=== PATIENT | male | born 1950 | race Caucasian/White ===

== ENCOUNTER 2018-05-06 08:26 | Observation (INO) | payer MEDICARE, OTHER ==
[~2018-05-06] VITALS: Ht 167.6 cm; Wt 70.8 kg
[2018-05-06] MEDS ORDERED: ASPIRIN 325 MG TAB PO ONE (09:00)
[2018-05-06] MEDS ORDERED: ACET-2047 PO (09:11)
[2018-05-06] MEDS ORDERED: IRON100V IV (09:11)
[2018-05-06] MEDS ORDERED: CLON-379 PO (09:11)
[2018-05-06] MEDS ORDERED: NITR0.4T39 SL (09:11)
[2018-05-06] MEDS ORDERED: EPOE3000 SC (09:11)
[2018-05-06] MEDS ORDERED: LOPE-123 PO (09:11)
[2018-05-06] MEDS ORDERED: NPH,100V SQ ×2 (09:19)
[2018-05-06] MEDS ORDERED: AMLO5TAB4 PO (09:19)
[2018-05-06] MEDS ORDERED: GABA100C14 PO ×2 (09:19)
[2018-05-06] MEDS ORDERED: CALC300T5 PO (09:19)
[2018-05-06] MEDS ORDERED: SEVE800T7 PO (09:24)
[2018-05-06] MEDS ORDERED: SS SC (09:24)
[2018-05-06] MEDS ORDERED: NEPH PO (09:24)
[2018-05-06] MEDS ORDERED: CALC667T2 PO (09:24)
[2018-05-06] MEDS ORDERED: ACETAMINOPHEN 325 MG TAB PO PRN ×2 (10:00→12:00)
[2018-05-06] MEDS ORDERED: ONDANSETRON 4 MG INJ IV PRN ×2 (10:00→12:00)
--- NOTE | 2018-05-06 10:25 | ERD ---
ER Documentation Chief Complaint Chief Complaint NEW ONSET CONFUSION FROM DIALYSIS HPI Patient is a 67-year-old male with diabetes and end-stage renal disease on dialysis who presents altered. He was brought in by ambulance. He came from dialysis. He was confused after dialysis. The last known well time was 3 hours ago per the paramedics. He was weaker than normal per staff and was only awake alert and oriented x2. He does not know what year or month it is. He denies complaints. Upon review of old medical records this is the patient's first visit to the emergency department. ROS All systems reviewed and are negative except as per history of present illness. Medications Home Meds Reported Medications Sevelamer Carbonate* (Renvela*) 800 Mg Tablet, 2400 MG PO WITH MEALS, TAB 05/06/18 Multivit/Ca Carb/B Cmplx/Fa* (Abby-Lisa*) 1 Tab Tab, 1 TAB PO DAILY, TAB 05/06/18 Calcium Acetate* (Phoslo*) 667 Mg Tablet, 1334 MG PO WITH MEALS, TAB 05/06/18 Insulin Human Regular (Novolin-R U-100) 100 Unit/Ml Soln, 12 UNITS SC TID, EA 05/06/18 Insulin NPH Human Isophane (Humulin N) 100 Unit/1 Ml Vial, 8 UNIT SQ BID WITH MEALS for lunch and dinner, VIAL 05/06/18 Insulin NPH Human Isophane (Humulin N) 100 Unit/1 Ml Vial, 12 UNIT SQ am, VIAL 05/06/18 Gabapentin* (Gabapentin*) 100 Mg Capsule, 200 MG PO hs, #180 CAP 05/06/18 Gabapentin* (Gabapentin*) 100 Mg Capsule, 100 MG PO morning, #90 CAP 05/06/18 Amlodipine Besylate* (Norvasc*) 5 Mg Tablet, 5 MG PO DAILY, TAB 05/06/18 Calcium Carbonate (Tums) 300 Mg Tab.chew, 500 MG PO QID PRN for HEARTBURN, TAB.CHEW 05/06/18 Loperamide Hcl* (Loperamide Hcl*) 2 Mg Cap, 2 MG PO Q6H PRN for DIARRHEA, CAP 05/06/18 Nitroglycerin* (Nitrostat*) 0.4 Mg Tab.subl, 0.4 MG SL Q5MIN PRN for CHEST PAIN, BOTTLE 05/06/18 Clonidine Hcl* (Clonidine Hcl*) 0.1 Mg Tab, 0.1 MG PO TID PRN for for sbp>180, TAB 05/06/18 Acetaminophen* (Acetaminophen*) 650 Mg Tablet, 650 MG PO Q6H PRN for PAIN AND OR ELEVATED TEMP, #30 TAB 05/06/18 Iron Sucrose* (Venofer*) 100 Mg/5 Ml Vial, 50 MG IV weekly, VIAL 05/06/18 Epoetin abebe* (Epogen*) 3,000 Unit/1 Ml Vial, 3600 UNIT SC MONWEDFRI, VIAL 05/06/18 Allergies Allergies: Coded Allergies: No Known Allergy (Unverified , 05/06/18) PMhx/Soc History of Surgery: Yes (FISTULA ) Anesthesia Reaction: No Hx 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 Disorder: No Hx Respiratory Disorders: No Hx Cardiac Disorders: Yes (HTN, HIGH CHOLESTEROL) Hx Psychiatric Problems: No Hx Miscellaneous Medical Probl: Yes (DM, ESRD ON HD) Hx Alcohol Use: No Hx Substance Use: No Hx Tobacco Use: Yes Smoking Status: Current every day smoker FmHx Family History: diabetes Physical Exam Vitals Vital Signs Date Temp Pulse Resp B/P (MAP) Pulse Ox O2 O2 Flow FiO2 Time Delivery Rate 05/06/18 Nasal 2 08:30 Cannula 05/06/18 98.1 82 16 163/95 88 08:30 (117) Physical Exam Const: No acute distress Head: Atraumatic Eyes: Normal Conjunctiva ENT: Normal External Ears, Nose and Mouth. Neck: Full range of motion. No meningismus. Resp: Clear to auscultation bilaterally Cardio: Regular rate and rhythm, no murmurs Abd: Soft, non tender, non distended. Normal bowel sounds Skin: No petechiae or rashes Back: No midline or flank tenderness Ext: No cyanosis, or edema Neur: Awake and alert x2, patient unable to tell me the year or month, but able to tell his name and state, field service consultant strength equal bilaterally, no pronator drift, no slurred speech, no facial droop Psych: Normal Mood and Affect Result Diagram: 05/06/18 0843 05/06/18 0845 Results 24 hrs Laboratory Tests Test 05/06/18 08:43 05/06/18 08:44 05/06/18 08:45 White Blood Count 4.0 10^3/ul Red Blood Count 3.05 10^6/ul Hemoglobin 9.4 g/dl Hematocrit 28.3 % Mean Corpuscular Volume 92.8 fl Mean Corpuscular Hemoglobin 30.8 pg Mean Corpuscular Hemoglobin Concent 33.2 g/dl Red Cell Distribution Width 14.4 % Platelet Count 142 10^3/UL Mean Platelet Volume 8.5 fl Immature Granulocytes % 0.300 % Neutrophils % 76.3 % Lymphocytes % 15.6 % Monocytes % 6.0 % Eosinophils % 1.3 % Basophils % 0.5 % Nucleated Red Blood Cells % 0.0 /100WBC Immature Granulocytes # 0.010 10^3/ul Neutrophils # 3.0 10^3/ul Lymphocytes # 0.6 10^3/ul Monocytes # 0.2 10^3/ul Eosinophils # 0.1 10^3/ul Basophils # 0.0 10^3/ul Nucleated Red Blood Cells # 0.0 10^3/ul Prothrombin Time 12.5 Sec Prothrombin Time Ratio 1.0 INR International Normalized Ratio 0.92 Activated Partial Thromboplast Time 32.9 Sec Sodium Level 139 mmol/L Potassium Level 3.9 mmol/L Chloride Level 91 mmol/L Carbon Dioxide Level 33 mmol/L Anion Gap 15 Blood Urea Nitrogen 32 mg/dl Creatinine 4.86 mg/dl Est Glomerular Filtrat Rate mL/min 12 mL/min Glucose Level 103 mg/dl Bedside Glucose 101 mg/dL Hemoglobin A1c 6.2 % Calcium Level 9.2 mg/dl Creatine Kinase 153 IU/L Creatine Kinase Index 2.5 Creatinine Kinase MB (Mass) 3.77 ng/ml Troponin I 0.045 ng/ml Triglycerides Level 162 mg/dl Cholesterol Level 164 mg/dl LDL Cholesterol, Calculated 89 mg/dl HDL Cholesterol 43 mg/dl Cholesterol/HDL Ratio 3.8 RATIO Ethyl Alcohol Level < 10.0 mg/dl Current Medications Medications Dose Sig/[place] Start Time Status Last (Trade) Ordered Route PRN Stop Time Admin Dose Reason Admin Aspirin 325 mg ONCE ONCE 05/06/18 DC 05/06/18 (Aspirin) PO 09:00 05/06/18 08:45 09:01 Ondansetron 4 mg ER BRIDGE 05/06/18 HCl (Zofran PRN IV 10:00 05/07/18 Inj) NAUSEA/VOMITI 09:59 NG 650 mg ER BRIDGE 05/06/18 Acetaminophen PRN PO 10:00 05/07/18 (Tylenol .MILD PAIN 09:59 Tab) 1-3 OR TEMP Procedures/MDM EKG read by me: Rate/Rhythm: Regular rate and rhythm at a normal rate Intervals: Normal Impression: No evidence of ischemia or arrhythmia CT brain shows no bleed or mass per radiology. Patient is a 67-year-old male who presents with altered mental status from dialysis. He arrived at 8:24 AM. A code stroke was called 8:26 AM and tele- neurology was called at the same time. The patient went straight to CT from the mathematics instructor [facility]. At 8:36 AM the radiologist called me and told me that the CT head was negative for bleed. I spoke with Dr. Kenyon teleneurologist at 8:38 AM who said that the patient would not get TPA as the risk would outweigh the benefits. I spoke with Dr. Flood from the panel team for admission to a telemetry observation bed. 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 The patient was given aspirin empirically after he passed a swallow evaluation. NIH stroke scale was performed by nursing. I doubt intracranial hemorrhage or mass. I doubt stroke at this time but the patient will need MRI for confirmation. Critical Care: Time: 35 minutes excluding all billable procedures. Treatments/Evaluations: Close monitoring and treatment of unstable vital signs, cardiorespiratory, and neurologic status, while maintaining tight balance of fluid, respiratory, and cardiac interventions. Departure Diagnosis: Primary Impression: Altered mental status Altered mental status type: unspecified Qualified Codes: R41.82 - Altered mental status, unspecified Condition: QUIQUE Pritchett MD May 06, 2018 10:25
--- NOTE | 2018-05-06 11:41 | HP ---
Date/Time of Note Date/Time of Note DATE: 05/06/18 TIME: 11:41 Assessment/Plan VTE Prophylaxis Pharmacological prophylaxis: LMWH Lines/Catheters IV Catheter Type (from [facility]): [place] Assessment/Plan Hospital Course 67-year-old male with comorbidities including hypertension, diabetes mellitus type 2, ESRD on hemodialysis, dyslipidemia, and anemia. He had acute onset of confusion while he was getting hemodialysis. Therefore, the patient was brought to the emergency room. The patient is status post evaluation by a tele- neurologist who recommended no TPA. The patient is being admitted to inpatient setting for further treatment and evaluation. 1. Acute encephalopathy. -Etiology unclear. -Brain CT scan negative. -Will start the patient on aspirin and statins until stroke is ruled out. -Obtain brain MRI along with a neck CTA and a brain CTA. -Obtain neurology consult. -Speech therapy and physical therapy evaluation. Permissive hypertension until stroke was ruled out. 2. Hypertension. -Treat high blood pressure readings greater than 220 mmHg. -Permissive hypertension. 3. Diabetes mellitus. -Start the patient on sliding scale insulin along with pre-meal insulin and basal insulin. -Obtain hemoglobin A1c to evaluate the blood glucose control over the past few weeks. 4. End-stage renal disease on hemodialysis. -Obtain nephrology consult. 5. Dyslipidemia. -Continue statins. 6. Normocytic anemia. -Most probably anemia chronic disease. -Monitor H&H closely. 7. Nicotine use. -Start nicotine patch. Plan: The patient will be admitted to inpatient telemetry floor. The patient will be started on a carbohydrate controlled, renal diet. The patient will be started on DVT prophylaxis. The patient will remain a full code. Activities will be with assist. The rest of the patient's management will be based on the clinical course, inputs from consultants, and the results of diagnostic studies. Based on the patient's clinical presentation, he most probably requires at least 1 midnight's stay for further management and evaluation of his clinical presentation. The patient was seen in collaboration with Dr. Flood. Result Diagram: 05/06/18 0843 05/06/18 0845 Results 24hrs Laboratory Tests Test 05/06/18 08:43 05/06/18 08:44 05/06/18 08:45 White Blood Count 4.0 L Red Blood Count 3.05 L Hemoglobin 9.4 L Hematocrit 28.3 L Mean Corpuscular Volume 92.8 Mean Corpuscular Hemoglobin 30.8 Mean Corpuscular Hemoglobin Concent 33.2 Red Cell Distribution Width 14.4 Platelet Count 142 Mean Platelet Volume 8.5 Immature Granulocytes % 0.300 Neutrophils % 76.3 Lymphocytes % 15.6 Monocytes % 6.0 Eosinophils % 1.3 Basophils % 0.5 Nucleated Red Blood Cells % 0.0 Immature Granulocytes # 0.010 Neutrophils # 3.0 Lymphocytes # 0.6 L Monocytes # 0.2 L Eosinophils # 0.1 Basophils # 0.0 Nucleated Red Blood Cells # 0.0 Prothrombin Time 12.5 Prothrombin Time Ratio 1.0 INR International Normalized Ratio 0.92 Activated Partial Thromboplast Time 32.9 Sodium Level 139 Potassium Level 3.9 Chloride Level 91 L Carbon Dioxide Level 33 H Anion Gap 15 H Blood Urea Nitrogen 32 H Creatinine 4.86 H Est Glomerular Filtrat Rate mL/min 12 L Glucose Level 103 Bedside Glucose 101 Hemoglobin A1c 6.2 H Calcium Level 9.2 Creatine Kinase 153 Creatine Kinase Index 2.5 Creatinine Kinase MB (Mass) 3.77 H Troponin I 0.045 Triglycerides Level 162 H Cholesterol Level 164 LDL Cholesterol, Calculated 89 HDL Cholesterol 43 Cholesterol/HDL Ratio 3.8 Ethyl Alcohol Level < 10.0 H HPI/ROS Admit Date/Time Admit Date/Time May 06, 2018 at 09:51 Hx of Present Illness This is a 67-year-old male with past medical history of hypertension, diabetes type 2, end-stage renal disease on hemodialysis, dyslipidemia, and anemia. The patient went to his hemodialysis clinic as scheduled on 05/06/2018. The patient apparently became confused. Therefore, the patient was transferred to [facility] for further evaluation and management. The patient denied any headache, chest pain, palpitations, or dyspnea. The patient does not remember what happened after he was initiated on hemodialysis. There was no reported falls. In the emergency room, the patient was evaluated by tele- neurologist who recommended no TPA. The patient's brain CT scan was negative for any acute findings. The patient's troponins were negative. The patient's chest x-ray was showing mild cardiomegaly with pulmonary vascular congestion and bibasilar linear atelectatic changes. ROS Constitutional: no complaints Eyes: no complaints ENT: no complaints Respiratory: no complaints Cardiovascular: no complaints Gastrointestinal: no complaints Genitourinary: no complaints Musculoskeletal: no complaints Skin: no complaints Neurologic: confusion Endocrine: no complaints Lymphatic: no complaints Psychological: no complaints Immunologic: no complaints PMH/Family/Social Past Medical History 1. Hypertension. 2. Diabetes mellitus type 2. 3. End-stage renal disease on hemodialysis. 4. Dyslipidemia. 5. Anemia. Medications Current Medications Ondansetron HCl (Zofran Inj) 4 mg ER BRIDGE PRN IV NAUSEA/VOMITING; Start 05/06/18 at 10:00; Stop 05/07/18 at 09:59 Acetaminophen (Tylenol Tab) 650 mg ER BRIDGE PRN PO .MILD PAIN 1-3 OR TEMP; Start 05/06/18 at 10:00; Stop 05/07/18 at 09:59 Coded Allergies: No Known Allergy (Unverified , 05/07/18) Past Surgical History Left upper extremity AV fistula placement. Social History Alcohol Use: none Smoking Status: Current every day smoker Drug Use: none Exam/Review of Systems Vital Signs Vitals Vital Signs Date Temp Pulse Resp B/P (MAP) Pulse Ox O2 O2 Flow FiO2 Time Delivery Rate 05/06/18 98.1 81 16 179/74 99 Nasal 2.0 11:06 (109) Cannula Exam Exam General: Adequately build 67 year-old male lying in bed in no apparent distress. HEENT: Normocephalic, atraumatic. Eyes: Anicteric sclerae, conjunctivae clear. ENT: Nasal septum midline, oral mucosa moist. Neck supple. Respiratory: Bilaterally clear breath sounds. No use of accessory muscles of respiration. No adventitious breath sounds. Cardiovascular: S1, S2 heard. Regular rate and rhythm. Abdomen: Soft, nontender, and nondistended. Bowel sounds positive in all 4 quadrants. Genitourinary: Deferred. Extremities: No cyanosis, no clubbing, no edema. Peripheral pulses palpable. Neurologic: The patient is awake and alert. Moves all 4 extremities. Oriented to self and place. Unable to tell me the date, month, or year. Able to tell who is the president. Skin: Normal skin turgor. No skin rashes. Additional Comments Brain CT IMPRESSION: 1. No acute intracranial pathology identified. 2. Mild volume loss, with mild chronic small vessel ischemic changes. CXR IMPRESSION: Mild cardiomegaly with pulmonary vascular congestion. Bibasilar linear atelectatic changes. ROLAND ZIMMERMAN NP May 06, 2018 11:41
[2018-05-06] MEDS ORDERED: NACL 0.9% 3 ML SYG IV SCH (12:00)
[2018-05-06 12:08] VITALS: PULSE 84
--- NOTE | 2018-05-06 12:26 | CONS ---
Assessment/Plan Assessment/Plan Assessment/Plan (Daily) 1. accelerated HTN 2. ESRD on HD -MWF schedule at [facility] HD unit 3. acute encephalopathy 4. H/o HTN 5. H/o HL 6. TIA vs rule out stroke Plan: seen in ED< getting admitted to tele, Pt is confused, has difficulty recalling his memory Plan for HD tomorrow BP control, with currently permissive HTN until stroke is ruled out MRI brain to assess for acute stroke Thanks for consultation, I will continue to follow up Consultation Date/Type/Reason Admit Date/Time May 06, 2018 at 09:51 Date of Consultation: May 06, 2018 Type of Consult NEPHROLOGY Reason for Consultation ESRD on HD, accelerated HTN Requesting Provider: ROLAND ZIMMERMAN NP Date/Time of Note DATE: 05/06/18 TIME: 12:25 Hx of Present Illness 67-year-old male with past medical history of hypertension, diabetes type 2, end-stage renal disease on hemodialysis, dyslipidemia, and anemia. Patient went to his hemodialysis clinic as scheduled on 05/06/2018. The patient apparently became confused. Therefore, the patient was transferred to [facility] for further evaluation and management. Patient status acute onset of confusion while he was getting hemodialysis. Therefore, the patient was brought to the emergency room. The patient is status post evaluation by a telemetry neurologist who recommended no TPA.- pt gets admitted for acute encephalopathy and to rule out acute stroke BP has been high, pt gets HD on , sunday schedule in [facility]. Renal has been consulted for maintainance HD and BP control Constitutional: disoriented, other (confusion ) Eyes: no complaints ENT: no complaints Respiratory: no complaints Cardiovascular: no complaints Gastrointestinal: no complaints Genitourinary: no complaints Musculoskeletal: no complaints Skin: no complaints Neurologic: no complaints Endocrine: no complaints Lymphatic: no complaints Psychological: no complaints Immunologic: no complaints Past Medical History Medical History: high cholesterol, hypertension, other (ESRD on HD ) Home Meds Reported Medications Sevelamer Carbonate* (Renvela*) 800 Mg Tablet, 2400 MG PO WITH MEALS, TAB 05/06/18 Multivit/Ca Carb/B Cmplx/Fa* (Abby-Lisa*) 1 Tab Tab, 1 TAB PO DAILY, TAB 05/06/18 Calcium Acetate* (Phoslo*) 667 Mg Tablet, 1334 MG PO WITH MEALS, TAB 05/06/18 Insulin Human Regular (Novolin-R U-100) 100 Unit/Ml Soln, 12 UNITS SC TID, EA 05/06/18 Insulin NPH Human Isophane (Humulin N) 100 Unit/1 Ml Vial, 8 UNIT SQ BID WITH MEALS for lunch and dinner, VIAL 05/06/18 Insulin NPH Human Isophane (Humulin N) 100 Unit/1 Ml Vial, 12 UNIT SQ am, VIAL 05/06/18 Gabapentin* (Gabapentin*) 100 Mg Capsule, 200 MG PO hs, #180 CAP 05/06/18 Gabapentin* (Gabapentin*) 100 Mg Capsule, 100 MG PO morning, #90 CAP 05/06/18 Amlodipine Besylate* (Norvasc*) 5 Mg Tablet, 5 MG PO DAILY, TAB 05/06/18 Calcium Carbonate (Tums) 300 Mg Tab.chew, 500 MG PO QID PRN for HEARTBURN, TA B.CHEW 05/06/18 Loperamide Hcl* (Loperamide Hcl*) 2 Mg Cap, 2 MG PO Q6H PRN for DIARRHEA, CAP 05/06/18 Nitroglycerin* (Nitrostat*) 0.4 Mg Tab.subl, 0.4 MG SL Q5MIN PRN for CHEST PAIN, BOTTLE 05/06/18 Clonidine Hcl* (Clonidine Hcl*) 0.1 Mg Tab, 0.1 MG PO TID PRN for for sbp>180, TAB 05/06/18 Acetaminophen* (Acetaminophen*) 650 Mg Tablet, 650 MG PO Q6H PRN for PAIN AND OR ELEVATED TEMP, #30 TAB 05/06/18 Iron Sucrose* (Venofer*) 100 Mg/5 Ml Vial, 50 MG IV weekly, VIAL 05/06/18 Epoetin abebe* (Epogen*) 3,000 Unit/1 Ml Vial, 3600 UNIT SC MONWEDFRI, VIAL 05/06/18 Medications Current Medications IV Flush (NS 3 ml) 3 ml PER PROTOCOL IV ; Start 05/06/18 at 12:00; Status UNV Ondansetron HCl (Zofran Inj) 4 mg Q6H PRN IV NAUSEA/VOMITING; Start 05/06/18 at 12:00; Status UNV Aspirin (Aspirin) 81 mg DAILY PO ; Start 05/07/18 at 09:00 Acetaminophen (Tylenol Tab) 650 mg Q6H PRN PO .PAIN 1-3 OR TEMP; Start 05/06/18 at 12:00 Heparin Sodium (Porcine) (Heparin (5000 Units/1ml)) 5,000 unit Q8 SC ; Start 05/06/18 at 14:00 Calcium Acetate (Phoslo) 1,334 mg WITH MEALS PO ; Start 05/06/18 at 17:55 Calcium Carbonate (Tums Ex) 500 mg QID PRN PO HEARTBURN; Start 05/06/18 at 12:30 Gabapentin (Neurontin) 200 mg hs PO ; Start 05/06/18 at 21:00 Multivit/Ca Carb/ B Cmplx/FA/Prenat (Abby-Lisa) 1 tab DAILY PO ; Start 05/07/18 at 09:00; Status UNV Sevelamer Carbonate (Renvela) 2.4 gm WITH MEALS PO ; Start 05/06/18 at 17:55; Status UNV Miscellaneous Information (* Miscellaneous Pharmacy Order) Discontinue current oral sulfonylur... ONCE ONCE XX ; Start 05/06/18 at 12:30; Stop 05/06/18 at 12:31 Insulin Glargine (Lantus) 11 units DAILY@2000 SC ; Start 05/06/18 at 20:00 Insulin Aspart (Novolog Insulin Pen) 4 unit WITH MEALS SC ; Start 05/06/18 at 17:55 Miscellaneous Information (* Miscellaneous Pharmacy Order) HYPOGLYCEMIA PROTOCOL w... ONCE ONCE XX ; Start 05/06/18 at 12:30; Stop 05/06/18 at 12:31 Insulin Aspart (Novolog Insulin Pen) NOVOLOG *MILD* ALGORITHM WITH MEALS BEDTIME SC ; Start 05/06/18 at 17:55 Hydralazine HCl (Apresoline) 10 mg Q6H PRN IV SBP>220; Start 05/06/18 at 12:30 Miscellaneous Information 1 ea NOTE XX ; Start 05/06/18 at 12:30 Glucose (Glutose) 15 gm Q15M PRN PO DECREASED GLUCOSE; Start 05/06/18 at 12:30 Glucose (Glutose) 22.5 gm Q15M PRN PO DECREASED GLUCOSE; Start 05/06/18 at 12:30 Dextrose (D50w Syringe) 25 ml Q15M PRN IV DECREASED GLUCOSE; Start 05/06/18 at 12:30 Dextrose (D50w Syringe) 50 ml Q15M PRN IV DECREASED GLUCOSE; Start 05/06/18 at 12:30 Glucagon (Glucagen) 1 mg Q15M PRN IM DECREASED GLUCOSE; Start 05/06/18 at 12:30 Glucose (Glutose) 15 gm Q15M PRN BUCCAL DECREASED GLUCOSE; Start 05/06/18 at 12:30 Allergies: Coded Allergies: No Known Allergy (Unverified , 05/06/18) Past Surgical History Past Surgical Hx: other (LUE AVF ) Family History Significant Family History: no pertinent family hx Social History Alcohol Use: none Smoking Status: Current every day smoker Drug Use: none Exam/Review of Systems Exam Vitals Vital Signs Date Temp Pulse Resp B/P (MAP) Pulse Ox O2 O2 Flow FiO2 Time Delivery Rate 05/06/18 84 12:08 05/06/18 98.1 16 179/74 99 Nasal 2.0 11:06 (109) Cannula Constitutional: alert Psych: no complaints Head: normocephalic Eyes: nl conjunctiva ENMT: nl external ears & nose Neck: supple, non-tender Respiratory: clear to auscultation, normal air movement Cardiovascular: regular rate and rhythm, nl pulses Gastrointestinal: soft, non-tender Musculoskeletal: swelling Extremities: normal pulses 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: [employer] 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 II-XII intact, nl strength, confused, reflexes (normal ) Skin: nl turgor Lymph: nl lymph nodes Results Result Diagram: 05/06/18 0843 05/06/18 0845 Results 24hrs Laboratory Tests Test 05/06/18 08:43 05/06/18 08:44 05/06/18 08:45 05/06/18 11:49 White Blood Count 4.0 L Red Blood Count 3.05 L Hemoglobin 9.4 L Hematocrit 28.3 L Mean Corpuscular Volume 92.8 Mean Corpuscular 30.8 Hemoglobin Mean Corpuscular 33.2 Hemoglobin Concent Red Cell Distribution 14.4 Width Platelet Count 142 Mean Platelet Volume 8.5 Immature Granulocytes % 0.300 Neutrophils % 76.3 Lymphocytes % 15.6 Monocytes % 6.0 Eosinophils % 1.3 Basophils % 0.5 Nucleated Red Blood 0.0 Cells % Immature Granulocytes # 0.010 Neutrophils # 3.0 Lymphocytes # 0.6 L Monocytes # 0.2 L Eosinophils # 0.1 Basophils # 0.0 Nucleated Red Blood 0.0 Cells # Prothrombin Time 12.5 Prothrombin Time Ratio 1.0 INR International 0.92 Normalized Ratio Activated 32.9 Partial Thromboplast Time Sodium Level 139 Potassium Level 3.9 Chloride Level 91 L Carbon Dioxide Level 33 H Anion Gap 15 H Blood Urea Nitrogen 32 H Creatinine 4.86 H Est Glomerular Filtrat 12 L Rate mL/min Glucose Level 103 Bedside Glucose 101 92 Hemoglobin A1c 6.2 H Calcium Level 9.2 Creatine Kinase 153 Creatine Kinase Index 2.5 Creatinine Kinase MB 3.77 H (Mass) Troponin I 0.045 Triglycerides Level 162 H Cholesterol Level 164 LDL Cholesterol, 89 Calculated HDL Cholesterol 43 Cholesterol/HDL Ratio 3.8 Ethyl Alcohol Level < 10.0 H Medications Medication Current Medications IV Flush (NS 3 ml) 3 ml PER PROTOCOL IV ; Start 05/06/18 at 12:00; Status UNV Ondansetron HCl (Zofran Inj) 4 mg Q6H PRN IV NAUSEA/VOMITING; Start 05/06/18 at 12:00; Status UNV Aspirin (Aspirin) 81 mg DAILY PO ; Start 05/07/18 at 09:00 Acetaminophen (Tylenol Tab) 650 mg Q6H PRN PO .PAIN 1-3 OR TEMP; Start 05/06/18 at 12:00 Heparin Sodium (Porcine) (Heparin (5000 Units/1ml)) 5,000 unit Q8 SC ; Start 05/06/18 at 14:00 Calcium Acetate (Phoslo) 1,334 mg WITH MEALS PO ; Start 05/06/18 at 17:55 Calcium Carbonate (Tums Ex) 500 mg QID PRN PO HEARTBURN; Start 05/06/18 at 12:30 Gabapentin (Neurontin) 200 mg hs PO ; Start 05/06/18 at 21:00 Multivit/Ca Carb/ B Cmplx/FA/Prenat (Abby-Lisa) 1 tab DAILY PO ; Start 05/07/18 at 09:00; Status UNV Sevelamer Carbonate (Renvela) 2.4 gm WITH MEALS PO ; Start 05/06/18 at 17:55; Status UNV Miscellaneous Information (* Miscellaneous Pharmacy Order) Discontinue current oral sulfonylur... ONCE ONCE XX ; Start 05/06/18 at 12:30; Stop 05/06/18 at 12:31 Insulin Glargine (Lantus) 11 units DAILY@2000 SC ; Start 05/06/18 at 20:00 Insulin Aspart (Novolog Insulin Pen) 4 unit WITH MEALS SC ; Start 05/06/18 at 17:55 Miscellaneous Information (* Miscellaneous Pharmacy Order) HYPOGLYCEMIA PROTOCOL w... ONCE ONCE XX ; Start 05/06/18 at 12:30; Stop 05/06/18 at 12:31 Insulin Aspart (Novolog Insulin Pen) NOVOLOG *MILD* ALGORITHM WITH MEALS BEDTIME SC ; Start 05/06/18 at 17:55 Hydralazine HCl (Apresoline) 10 mg Q6H PRN IV SBP>220; Start 05/06/18 at 12:30 Miscellaneous Information 1 ea NOTE XX ; Start 05/06/18 at 12:30 Glucose (Glutose) 15 gm Q15M PRN PO DECREASED GLUCOSE; Start 05/06/18 at 12:30 Glucose (Glutose) 22.5 gm Q15M PRN PO DECREASED GLUCOSE; Start 05/06/18 at 12:30 Dextrose (D50w Syringe) 25 ml Q15M PRN IV DECREASED GLUCOSE; Start 05/06/18 at 12:30 Dextrose (D50w Syringe) 50 ml Q15M PRN IV DECREASED GLUCOSE; Start 05/06/18 at 12:30 Glucagon (Glucagen) 1 mg Q15M PRN IM DECREASED GLUCOSE; Start 05/06/18 at 12:30 Glucose (Glutose) 15 gm Q15M PRN BUCCAL DECREASED GLUCOSE; Start 05/06/18 at 12:30 DINAH PEREZ MD May 06, 2018 12:26
[2018-05-06] MEDS ORDERED: DEXTROSE 50% 50 ML SYRINGE IV PRN ×2 (12:30)
[2018-05-06] MEDS ORDERED: SODIUM CHLORIDE 0.9% 1L BAG IV PRN (12:30)
[2018-05-06] MEDS ORDERED: ALBUMIN HUMAN 25% 100 ML IV PRN (12:30)
[2018-05-06] MEDS ORDERED: GLUCOSE GEL 15 GRAM TUBE BUCCAL PRN (12:30)
[2018-05-06] MEDS ORDERED: GLUCOSE GEL 15 GRAM TUBE PO PRN ×2 (12:30)
[2018-05-06] MEDS ORDERED: NIFEdipine (XL) 60 MG TAB PO ONE (12:30)
[2018-05-06] MEDS ORDERED: CALCIUM CARBONATE 750 MG CHEW TAB PO PRN (12:30)
[2018-05-06] MEDS ORDERED: GLUCAGON 1 MG INJ IM PRN (12:30)
[2018-05-06] MEDS ORDERED: hydrALAzine 20 MG INJ IV PRN ×2 (12:30)
[2018-05-06] MEDS ORDERED: SOD CHLORIDE 0.9% 100 ML ONE (14:37)
[2018-05-06] MEDS ORDERED: IODIXANOL LOCM 100 ML BTL ONE (14:37)
[2018-05-06] MEDS: HEPARIN 5,000 UNIT/1 ML VIAL SC SCH ×2 (15:09→21:13)
[2018-05-06 15:34] VITALS: BP_SYST 162; BP_SYST 163; BP_SYST 186; BP_DIAS 75; BP_DIAS 82; PULSE 82; PULSE 85; PULSE 86
[2018-05-06 15:59] VITALS: Ht 167.6 cm; Wt 70.8 kg
[2018-05-06] MEDS: NICOTINE (7 MG/24 HR) PATCH TRANSDERM SCH (16:00)
[2018-05-06 16:05] VITALS: PULSE 80
--- NOTE | 2018-05-06 16:15 | CONS ---
Assessment/Plan Assessment/Plan Hospital Course 67 M c/ ESRD and other comorbidities, who presents for evaluation of ams during HD.. The clinical picture could be consistent w/ an acute encephalopathy.. Presyncope is possible... Stroke is less likely.. Seizure is unlikely.. Head CT was without obvious acute intracranial pathology. P: OK to defer MRI brain for now [facility] [place] as necessary Limit sedating medications where possible PT/OT/ST as necessary Other management per primary Consider EEG if his mental status begins to noticeably fluctuate Will follow Consultation Date/Type/Reason Admit Date/Time May 06, 2018 at 09:51 Type of Consult Neurology Reason for Consultation ams Requesting Provider: ROLAND ZIMMERMAN NP Date/Time of Note DATE: 05/06/18 TIME: 16:15 Hx of Present Illness This is a 67-year-old male with past medical history of hypertension, diabetes type 2, end-stage renal disease on hemodialysis, dyslipidemia, and anemia. Patient went to his hemodialysis clinic as scheduled on 05/06/2018. The patient apparently became confused. Therefore, the patient was transferred to [facility] for further evaluation and management. Patient denied any headache, chest pain, palpitations, or dyspnea. The patient does not remember what happened after he was initiated on hemodialysis. There was no reported falls. In the emergency room, the patient was evaluated by telemetry neurologist who recommended no TPA. The patient's brain CT scan was negative for any acute findings. The patient's troponins were negative. The patient's chest x-ray was showing mild cardiomegaly with pulmonary vascular congestion and bibasilar linear atelectatic changes. 12 PT ROS ow neg Exam/Review of Systems Exam Vitals Vital Signs Date Temp Pulse Resp B/P (MAP) Pulse Ox O2 O2 Flow FiO2 Time Delivery Rate 05/06/18 80 16:05 05/06/18 98.6 92 16:00 05/06/18 186/82 15:34 (116) 163/75 (104) 162/75 (104) 05/06/18 16 Nasal 2.0 11:06 Cannula Exam PE: Gen Appearance: No Apparent Distress HEENT: Normocephalic Cardiovascular: Regular rate Abdomen: Soft Extremities: Dry NE: The patient was alert and oriented. Language was normal. Insight was limited. Fund of knowledge was adequate. Pupils were equal and reactive to light. There was no afferent pupillary defect. Visual quiñonez were normal. Funduscopic examination was limited.. Extra-ocular mo vements were full. Ptosis was absent. There was no nystagmus. Facial sensation was normal. Face was symmetric with normal strength. Hearing was intact. Palate movements were normal. Neck strength was normal. There was normal tongue bulk and speed of movement. Tone was normal. Muscle bulk was normal. I did not see fasciculations. Arms and legs were symmetric.. Vibration sensation was limited distally. Temperature and pinprick sensation was normal. Rapid alternating movements were normal. There was no dysmetria. There was no intention tremor. Gait was somewhat unsteady.. Arm and leg reflexes were symmetric. Tamayo's sign was absent. Plantar responses were flexor. Results Result Diagram: 05/06/18 0843 05/06/18 0845 Results 24hrs Laboratory Tests Test 05/06/18 08:43 05/06/18 08:44 05/06/18 08:45 05/06/18 11:49 White Blood Count 4.0 L Red Blood Count 3.05 L Hemoglobin 9.4 L Hematocrit 28.3 L Mean Corpuscular Volume 92.8 Mean Corpuscular 30.8 Hemoglobin Mean Corpuscular 33.2 Hemoglobin Concent Red Cell Distribution 14.4 Width Platelet Count 142 Mean Platelet Volume 8.5 Immature Granulocytes % 0.300 Neutrophils % 76.3 Lymphocytes % 15.6 Monocytes % 6.0 Eosinophils % 1.3 Basophils % 0.5 Nucleated Red Blood 0.0 Cells % Immature Granulocytes # 0.010 Neutrophils # 3.0 Lymphocytes # 0.6 L Monocytes # 0.2 L Eosinophils # 0.1 Basophils # 0.0 Nucleated Red Blood 0.0 Cells # Prothrombin Time 12.5 Prothrombin Time Ratio 1.0 INR International 0.92 Normalized Ratio Activated 32.9 Partial Thromboplast Time Sodium Level 139 Potassium Level 3.9 Chloride Level 91 L Carbon Dioxide Level 33 H Anion Gap 15 H Blood Urea Nitrogen 32 H Creatinine 4.86 H Est Glomerular Filtrat 12 L Rate mL/min Glucose Level 103 Bedside Glucose 101 92 Hemoglobin A1c 6.2 H Calcium Level 9.2 Creatine Kinase 153 Creatine Kinase Index 2.5 Creatinine Kinase MB 3.77 H (Mass) Troponin I 0.045 Triglycerides Level 162 H Cholesterol Level 164 LDL Cholesterol, 89 Calculated HDL Cholesterol 43 Cholesterol/HDL Ratio 3.8 Ethyl Alcohol Level < 10.0 H Medications Medication Current Medications IV Flush (NS 3 ml) 3 ml PER PROTOCOL IV ; Start 05/06/18 at 12:00 Ondansetron HCl (Zofran Inj) 4 mg Q6H PRN IV NAUSEA/VOMITING; Start 05/06/18 at 12:00 Aspirin (Aspirin) 81 mg DAILY PO ; Start 05/07/18 at 09:00 Acetaminophen (Tylenol Tab) 650 mg Q6H PRN PO .PAIN 1-3 OR TEMP; Start 05/06/18 at 12:00 Heparin Sodium (Porcine) (Heparin (5000 Units/1ml)) 5,000 unit Q8 SC Last administered on 05/06/18at 15:09; Admin Dose 5,000 UNIT; Start 05/06/18 at 14:00 Calcium Acetate (Phoslo) 1,334 mg WITH MEALS PO ; Start 05/06/18 at 17:55 Calcium Carbonate (Tums Ex) 500 mg QID PRN PO HEARTBURN; Start 05/06/18 at 12:30 Gabapentin (Neurontin) 200 mg hs PO ; Start 05/06/18 at 21:00 Multivit/Ca Carb/ B Cmplx/FA/Prenat (Abby-Lisa) 1 tab DAILY PO ; Start 05/07/18 at 09:00 Sevelamer Carbonate (Renvela) 2.4 gm WITH MEALS PO ; Start 05/06/18 at 17:55 Insulin Glargine (Lantus) 11 units DAILY@2000 SC ; Start 05/06/18 at 20:00 Insulin Aspart (Novolog Insulin Pen) 4 unit WITH MEALS SC ; Start 05/06/18 at 17:55 Insulin Aspart (Novolog Insulin Pen) NOVOLOG *MILD* ALGORITHM WITH MEALS BEDTIM E SC ; Start 05/06/18 at 17:55 Miscellaneous Information 1 ea NOTE XX ; Start 05/06/18 at 12:30 Glucose (Glutose) 15 gm Q15M PRN PO DECREASED GLUCOSE; Start 05/06/18 at 12:30 Glucose (Glutose) 22.5 gm Q15M PRN PO DECREASED GLUCOSE; Start 05/06/18 at 12:30 Dextrose (D50w Syringe) 25 ml Q15M PRN IV DECREASED GLUCOSE; Start 05/06/18 at 12:30 Dextrose (D50w Syringe) 50 ml Q15M PRN IV DECREASED GLUCOSE; Start 05/06/18 at 12:30 Glucagon (Glucagen) 1 mg Q15M PRN IM DECREASED GLUCOSE; Start 05/06/18 at 12:30 Glucose (Glutose) 15 gm Q15M PRN BUCCAL DECREASED GLUCOSE; Start 05/06/18 at 12:30 Nifedipine (Procardia Xl) 60 mg DAILY PO ; Start 05/07/18 at 09:00 Hydralazine HCl (Apresoline) 10 mg Q4H PRN IV SBP>160; Start 05/06/18 at 12:30 Albumin Human 100 ml @ 100 mls/hr WITH DIALYSIS PRN IV SBP <90 DURING DIALYSIS; Start 05/06/18 at 12:30 Sodium Chloride (NS) -To prime the dialy... DIRECTED FOR HD PRN IV HD; Start 05/06/18 at 12:30 Nicotine (Nicoderm 7 Mg/ 24 Hr) 1 patch DAILY TRANSDERM ; Start 05/06/18 at 16:00 Atorvastatin Calcium (Lipitor) 40 mg HS PO ; Start 05/06/18 at 21:00 Past Medical History reviewed Home Meds Reported Medications Sevelamer Carbonate* (Renvela*) 800 Mg Tablet, 2400 MG PO WITH MEALS, TAB 05/06/18 Multivit/Ca Carb/B Cmplx/Fa* (Abby-Lisa*) 1 Tab Tab, 1 TAB PO DAILY, TAB 05/06/18 Calcium Acetate* (Phoslo*) 667 Mg Tablet, 1334 MG PO WITH MEALS, TAB 05/06/18 Insulin Human Regular (Novolin-R U-100) 100 Unit/Ml Soln, 12 UNITS SC TID, EA 05/06/18 Insulin NPH Human Isophane (Humulin N) 100 Unit/1 Ml Vial, 8 UNIT SQ BID WITH MEALS for lunch and dinner, VIAL 05/06/18 Insulin NPH Human Isophane (Humulin N) 100 Unit/1 Ml Vial, 12 UNIT SQ am, VIAL 05/06/18 Gabapentin* (Gabapentin*) 100 Mg Capsule, 200 MG PO hs, #180 CAP 05/06/18 Gabapentin* (Gabapentin*) 100 Mg Capsule, 100 MG PO morning, #90 CAP 05/06/18 Amlodipine Besylate* (Norvasc*) 5 Mg Tablet, 5 MG PO DAILY, TAB 3/4/19 Calcium Carbonate (Tums) 300 Mg Tab.chew, 500 MG PO QID PRN for HEARTBURN, TAB.CHEW 05/06/18 Loperamide Hcl* (Loperamide Hcl*) 2 Mg Cap, 2 MG PO Q6H PRN for DIARRHEA, CAP 05/06/18 Nitroglycerin* (Nitrostat*) 0.4 Mg Tab.subl, 0.4 MG SL Q5MIN PRN for CHEST PAIN, BOTTLE 05/06/18 Clonidine Hcl* (Clonidine Hcl*) 0.1 Mg Tab, 0.1 MG PO TID PRN for for sbp>180, TAB 05/06/18 Acetaminophen* (Acetaminophen*) 650 Mg Tablet, 650 MG PO Q6H PRN for PAIN AND OR ELEVATED TEMP, #30 TAB 05/06/18 Iron Sucrose* (Venofer*) 100 Mg/5 Ml Vial, 50 MG IV weekly, VIAL 05/06/18 Epoetin abebe* (Epogen*) 3,000 Unit/1 Ml Vial, 3600 UNIT SC [facility], VIAL 05/06/18 Medications Current Medications IV Flush (NS 3 ml) 3 ml PER PROTOCOL IV ; Start 05/06/18 at 12:00 Ondansetron HCl (Zofran Inj) 4 mg Q6H PRN IV NAUSEA/VOMITING; Start 05/06/18 at 12:00 Aspirin (Aspirin) 81 mg DAILY PO ; Start 05/07/18 at 09:00 Acetaminophen (Tylenol Tab) 650 mg Q6H PRN PO .PAIN 1-3 OR TEMP; Start 05/06/18 at 12:00 Heparin Sodium (Porcine) (Heparin (5000 Units/1ml)) 5,000 unit Q8 SC Last administered on 05/06/18at 15:09; Admin Dose 5,000 UNIT; Start 05/06/18 at 14:00 Calcium Acetate (Phoslo) 1,334 mg WITH MEALS PO ; Start 05/06/18 at 17:55 Calcium Carbonate (Tums Ex) 500 mg QID PRN PO HEARTBURN; Start 05/06/18 at 12:30 Gabapentin (Neurontin) 200 mg hs PO ; Start 05/06/18 at 21:00 Multivit/Ca Carb/ B Cmplx/FA/Prenat (Abby-Lisa) 1 tab DAILY PO ; Start 05/07/18 at 09:00 Sevelamer Carbonate (Renvela) 2.4 gm WITH MEALS PO ; Start 05/06/18 at 17:55 Insulin Glargine (Lantus) 11 units DAILY@2000 SC ; Start 05/06/18 at 20:00 Insulin Aspart (Novolog Insulin Pen) 4 unit WITH MEALS SC ; Start 05/06/18 at 17:55 Insulin Aspart (Novolog Insulin Pen) NOVOLOG *MILD* ALGORITHM WITH MEALS BEDTIME SC ; Start 05/06/18 at 17:55 Miscellaneous Information 1 ea NOTE XX ; Start 05/06/18 at 12:30 Glucose (Glutose) 15 gm Q15M PRN PO DECREASED GLUCOSE; Start 05/06/18 at 12:30 Glucose (Glutose) 22.5 gm Q15M PRN PO DECREASED GLUCOSE; Start 05/06/18 at 12:30 Dextrose (D50w Syringe) 25 ml Q15M PRN IV DECREASED GLUCOSE; Start 05/06/18 at 12:30 Dextrose (D50w Syringe) 50 ml Q15M PRN IV DECREASED GLUCOSE; Start 05/06/18 at 12:30 Glucagon (Glucagen) 1 mg Q15M PRN IM DECREASED GLUCOSE; Start 05/06/18 at 12:30 Glucose (Glutose) 15 gm Q15M PRN BUCCAL DECREASED GLUCOSE; Start 05/06/18 at 12:30 Nifedipine (Procardia Xl) 60 mg DAILY PO ; Start 05/07/18 at 09:00 Hydralazine HCl (Apresoline) 10 mg Q4H PRN IV SBP>160; Start 05/06/18 at 12:30 Albumin Human 100 ml @ 100 mls/hr WITH DIALYSIS PRN IV SBP <90 DURING DIALYSIS; Start 05/06/18 at 12:30 Sodium Chloride (NS) -To prime the dialy... DIRECTED FOR HD PRN IV HD; Start 05/06/18 at 12:30 Nicotine (Nicoderm 7 Mg/ 24 Hr) 1 patch DAILY TRANSDERM ; Start 05/06/18 at 16:00 Atorvastatin Calcium (Lipitor) 40 mg HS PO ; Start 05/06/18 at 21:00 Allergies: Coded Allergies: No Known Allergy (Unverified , 05/06/18) Past Surgical History reviewed Social History Alcohol Use: none Smoking Status: Current some day smoker Drug Use: none BHUPINDER MENDEZ NP May 06, 2018 16:15 TONA FOSS May 06, 2018 16:37
[2018-05-06] MEDS: INSULIN ASPART [NOVOLOG] 3 ML PEN SC SCH ×3 (17:55→20:54)
[2018-05-06] MEDS: CALCIUM ACETATE 667 MG CAP PO SCH (18:15)
[2018-05-06] MEDS: SEVELAMER CARBONATE 0.8 GM PKT PO SCH (18:16)
[2018-05-06 20:00] VITALS: BP 145/64; PULSE 79; RESP 18
[2018-05-06 20:25] VITALS: PULSE 80
[2018-05-06] MEDS: ATORVASTATIN 40 MG TAB PO SCH (20:53)
[2018-05-06] MEDS: GABAPENTIN 100 MG CAP PO SCH (20:54)
[2018-05-06] MEDS: INSULIN GLARGINE [LANTus] (100 UNITS/ML) SYG SC SCH (20:57)
[2018-05-07] VITALS (13 sets, daily range): BP systolic 135–166; BP diastolic 63–76; PULSE 71–83; RESP 18–20
[2018-05-07] MEDS: HEPARIN 5,000 UNIT/1 ML VIAL SC SCH ×3 (05:10→21:12)
[2018-05-07] MEDS: INSULIN ASPART [NOVOLOG] 3 ML PEN SC SCH ×7 (07:55→21:00)
[2018-05-07] MEDS: SEVELAMER CARBONATE 0.8 GM PKT PO SCH ×3 (08:54→17:17)
[2018-05-07] MEDS: ASPIRIN 81 MG TAB PO SCH (08:55)
[2018-05-07] MEDS: MULTIVIT/CA CARB/B CMPLX/FA TAB PO SCH (08:55)
[2018-05-07] MEDS: CALCIUM ACETATE 667 MG CAP PO SCH ×3 (08:55→17:15)
[2018-05-07] MEDS: NICOTINE (7 MG/24 HR) PATCH TRANSDERM SCH (08:55)
[2018-05-07] MEDS: NIFEdipine (XL) 60 MG TAB PO SCH (09:00)
--- NOTE | 2018-05-07 14:39 | PN ---
Date/Time of Note Date/Time of Note DATE: 05/07/18 TIME: 14:32 Assessment/Plan VTE Prophylaxis Risk score (from Ns)>0 risk: 2 SCD applied (from [facility] [place]): No SCD contraindicated: other Pharmacological prophylaxis: heparin Lines/Catheters IV Catheter Type (from [facility]): Saline Lock Urinary Cath still in place: No Assessment/Plan Hospital Course SUBJECTIVE: Denies any complaints today. OBJECTIVE: Physical Exam General: Adequately build 67 year-old male lying in bed in no apparent distress. HEENT: Normocephalic, atraumatic. Eyes: Anicteric sclerae, conjunctivae clear. ENT: Nasal septum midline, oral mucosa moist. Neck supple. Respiratory: Bilaterally clear breath sounds. No use of accessory muscles of respiration. No adventitious breath sounds. Cardiovascular: S1, S2 heard. Regular rate and rhythm. Abdomen: Soft, nontender, and nondistended. Bowel sounds positive in all 4 quadrants. Genitourinary: Deferred. Extremities: No cyanosis, no clubbing, no edema. Peripheral pulses palpable. Neurologic: The patient is awake and alert. Moves all 4 extremities. The patient is oriented x4. Labs & Vitals per chart ASSESSMENT & PLAN 67-year-old male with comorbidities including hypertension, diabetes mellitus type 2, ESRD on hemodialysis, dyslipidemia, and anemia. He had acute onset of confusion while he was getting hemodialysis. Therefore, the patient was brought to the emergency room. The patient is status post evaluation by a tele- neurologist who recommended no TPA. The patient was admitted to inpatient [facility] for further treatment and evaluation. 1. Acute encephalopathy. -Etiology unclear. -Brain CT and MRI negative for any stroke. -Neurology following. -Continue PT. 2. Right cavernous internal carotid artery moderate to severe stenosis; left cavernous and proximal supraclinoid internal carotid artery mild stenoses; left V4 vertebral artery mild stenosis. -Neurosurgery consult obtained. 3. 40% focal stenosis just distal to the origin of the left subclavian artery secondary to eccentric calcific atherosclerotic plaque. -Continue ASA+statin. -Vascular Surgery consult obtained. 4. Hypertension. -Continue antihypertensives. 5. Diabetes mellitus. -Continue the patient on sliding scale insulin along with pre-meal insulin and basal insulin. -Hemoglobin A1c 6.2. 6. End-stage renal disease on hemodialysis. -Being followed by nephrology. 7. Dyslipidemia. -Continue statins. 8. Normocytic anemia. -Most probably anemia chronic disease. -Monitor H&H closely. 9. Nicotine use. -Continue nicotine patch. 10. Fluids, electrolytes, and nutrition. -Renal, carbohydrate controlled diet. 11. DVT prophylaxis. -SQ heparin. 12. Plan. -Continue current management. -Obtain neurosurgery and vascular surgery consult. -Plan of care was explained to the patient. The patient was seen in collaboration with Dr. Flood. Result Diagram: 05/07/18 0609 05/07/18 0609 Results 24hrs Laboratory Tests Test 05/06/18 16:04 05/06/18 18:05 05/06/18 20:53 05/07/18 06:09 Creatine Kinase 135 Creatine Kinase Index 2.3 Creatinine Kinase MB 3.06 H (Mass) Troponin I 0.040 0.053 Bedside Glucose 124 137 White Blood Count 4.1 L Red Blood Count 2.85 L Hemoglobin 8.7 L Hematocrit 26.6 L Mean Corpuscular Volume 93.3 Mean Corpuscular 30.5 Hemoglobin Mean Corpuscular 32.7 Hemoglobin Concent Red Cell Distribution 13.9 Width Platelet Count 143 Mean Platelet Volume 9.1 Immature Granulocytes % 0.200 Neutrophils % 66.8 Lymphocytes % 22.5 Monocytes % 9.3 Eosinophils % 1.0 Basophils % 0.2 Nucleated Red Blood 0.0 Cells % Immature Granulocytes # 0.010 Neutrophils # 2.7 Lymphocytes # 0.9 Monocytes # 0.4 Eosinophils # 0.0 Basophils # 0.0 Nucleated Red Blood 0.0 Cells # Sodium Level 138 Potassium Level 4.3 Chloride Level 93 L Carbon Dioxide Level 31 Anion Gap 14 H Blood Urea Nitrogen 50 H Creatinine 7.63 #H Est Glomerular Filtrat 7 L Rate mL/min Glucose Level 63 #L Calcium Level 8.9 Phosphorus Level 5.5 H Magnesium Level 2.5 Total Bilirubin 0.1 L Direct Bilirubin 0.00 Indirect Bilirubin 0.1 Aspartate Amino 17 Transf (AST/SGOT) Alanine 10 L Aminotransferase (ALT/SG PT) Alkaline Phosphatase 69 Total Protein 7.2 Albumin 3.8 Globulin 3.40 H Albumin/Globulin Ratio 1.11 Test 05/07/18 07:40 05/07/18 12:01 Bedside Glucose 76 124 Exam/Review of Systems Exam Vitals Vital Signs Date Temp Pulse Resp B/P (MAP) Pulse Ox O2 O2 Flow FiO2 Time Delivery Rate 05/07/18 80 12:06 05/07/18 98.4 18 147/67 93 11:13 (93) 05/06/18 Nasal 2.0 11:06 Cannula Intake and Output 05/06/18 05/06/18 05/07/18 1515:00 23:00 07:00 IntakeIntake Total 400 ml 500 ml BalanceBalance 400 ml 500 ml Results Results 24hrs Laboratory Tests Test 05/06/18 16:04 05/06/18 18:05 05/06/18 20:53 05/07/18 06:09 Creatine Kinase 135 Creatine Kinase Index 2.3 Creatinine Kinase MB 3.06 H (Mass) Troponin I 0.040 0.053 Bedside Glucose 124 137 White Blood Count 4.1 L Red Blood Count 2.85 L Hemoglobin 8.7 L Hematocrit 26.6 L Mean Corpuscular Volume 93.3 Mean Corpuscular 30.5 Hemoglobin Mean Corpuscular 32.7 Hemoglobin Concent Red Cell Distribution 13.9 Width Platelet Count 143 Mean Platelet Volume 9.1 Immature Granulocytes % 0.200 Neutrophils % 66.8 Lymphocytes % 22.5 Monocytes % 9.3 Eosinophils % 1.0 Basophils % 0.2 Nucleated Red Blood 0.0 Cells % Immature Granulocytes # 0.010 Neutrophils # 2.7 Lymphocytes # 0.9 Monocytes # 0.4 Eosinophils # 0.0 Basophils # 0.0 Nucleated Red Blood 0.0 Cells # Sodium Level 138 Potassium Level 4.3 Chloride Level 93 L Carbon Dioxide Level 31 Anion Gap 14 H Blood Urea Nitrogen 50 H Creatinine 7.63 #H Est Glomerular Filtrat 7 L Rate mL/min Glucose Level 63 #L Calcium Level 8.9 Phosphorus Level 5.5 H Magnesium Level 2.5 Total Bilirubin 0.1 L Direct Bilirubin 0.00 Indirect Bilirubin 0.1 Aspartate Amino 17 Transf (AST/SGOT) Alanine 10 L Aminotransferase (ALT/SG PT) Alkaline Phosphatase 69 Total Protein 7.2 Albumin 3.8 Globulin 3.40 H Albumin/Globulin Ratio 1.11 Test 05/07/18 07:40 05/07/18 12:01 Bedside Glucose 76 124 Medications Medication Current Medications IV Flush (NS 3 ml) 3 ml PER PROTOCOL IV ; Start 05/06/18 at 12:00 Ondansetron HCl (Zofran Inj) 4 mg Q6H PRN IV NAUSEA/VOMITING; Start 05/06/18 at 12:00 Aspirin (Aspirin) 81 mg DAILY PO Last administered on 05/07/18 08:55; Admin Dose 81 MG; Start 05/07/18 at 09:00 Acetaminophen (Tylenol Tab) 650 mg Q6H PRN PO .PAIN 1-3 OR TEMP; Start 05/06/18 at 12:00 Heparin Sodium (Porcine) (Heparin (5000 Units/1ml)) 5,000 unit Q8 SC Last administered on 05/07/18at 05:10; Admin Dose 5,000 UNIT; Start 05/06/18 at 14:00 Calcium Acetate (Phoslo) 1,334 mg WITH MEALS PO Last administered on 05/07/18 12:41; Admin Dose 1,334 MG; Start 05/06/18 at 17:55 Calcium Carbonate (Tums Ex) 500 mg QID PRN PO HEARTBURN; Start 05/06/18 at 12:30 Gabapentin (Neurontin) 200 mg hs PO Last administered on 05/06/18at 20:54; Admin Dose 200 MG; Start 05/06/18 at 21:00 Multivit/Ca Carb/ B Cmplx/FA/Prenat (Abby-Lisa) 1 tab DAILY PO Last administered on 05/07/18 08:55; Admin Dose 1 TAB; Start 05/07/18 at 09:00 Sevelamer Carbonate (Renvela) 2.4 gm WITH MEALS PO Last administered on 05/07/18 12:42; Admin Dose 2.4 GM; Start 05/06/18 at 17:55 Insulin Glargine (Lantus) 11 units DAILY@2000 SC Last administered on 05/06/18at 20:57; Admin Dose 11 UNITS; Start 05/06/18 at 20:00 Insulin Aspart (Novolog Insulin Pen) 4 unit WITH MEALS SC ; Start 05/06/18 at 17:55 Insulin Aspart (Novolog Insulin Pen) NOVOLOG *MILD* ALGORITHM WITH MEALS BEDTIME SC ; Start 05/06/18 at 17:55 Miscellaneous Information 1 ea NOTE XX ; Start 05/06/18 at 12:30 Glucose (Glutose) 15 gm Q15M PRN PO DECREASED GLUCOSE; Start 05/06/18 at 12:30 Glucose (Glutose) 22.5 gm Q15M PRN PO DECREASED GLUCOSE; Start 05/06/18 at 12:30 Dextrose (D50w Syringe) 25 ml Q15M PRN IV DECREASED GLUCOSE; Start 05/06/18 at 12:30 Dextrose (D50w Syringe) 50 ml Q15M PRN IV DECREASED GLUCOSE; Start 05/06/18 at 12:30 Glucagon (Glucagen) 1 mg Q15M PRN IM DECREASED GLUCOSE; Start 05/06/18 at 12:30 Glucose (Glutose) 15 gm Q15M PRN BUCCAL DECREASED GLUCOSE; Start 05/06/18 at 12:30 Nifedipine (Procardia Xl) 60 mg DAILY PO ; Start 05/07/18 at 09:00 Hydralazine HCl (Apresoline) 10 mg Q4H PRN IV SBP>160; Start 05/06/18 at 12:30 Albumin Human 100 ml @ 100 mls/hr WITH DIALYSIS PRN IV SBP <90 DURING DIALYSIS; Start 05/06/18 at 12:30 Sodium Chloride (NS) -To prime the dialy... DIRECTED FOR HD PRN IV HD; Start 05/06/18 at 12:30 Nicotine (Nicoderm 7 Mg/ 24 Hr) 1 patch DAILY TRANSDERM ; Start 05/06/18 at 16:00 Atorvastatin Calcium (Lipitor) 40 mg HS PO Last administered on 05/06/18at 20:53; Admin Dose 40 MG; Start 05/06/18 at 21:00 ROLAND ZIMMERMAN NP May 07, 2018 14:39
--- NOTE | 2018-05-07 14:57 | CONS ---
Assessment/Plan Assessment/Plan Hospital Course 67 M c/ ESRD and other comorbidities, who presents for evaluation of ams during HD.. The clinical picture could be consistent w/ an acute encephalopathy.. Presyncope is possible... Stroke is less likely.. Seizure is unlikely.. Head CT was without obvious acute intracranial pathology. [facility] positive Urine studies are deferred due to anuria... P: OK to defer MRI brain for now [place]oleen as necessary Limit sedating medications where possible PT/OT/ST as necessary Other management per primary Will follow clinically Consultation Date/Type/Reason Admit Date/Time May 06, 2018 at 09:51 Type of Consult Neurology Reason for Consultation ams Requesting Provider: ROLAND ZIMMERMAN NP Date/Time of Note DATE: 05/07/18 TIME: 14:57 24 HR Interval Summary Free Text/Dictation Continues acute care Exam Vital Signs Vitals Vital Signs Date Temp Pulse Resp B/P (MAP) Pulse Ox O2 O2 Flow FiO2 Time Delivery Rate 05/07/18 80 12:06 05/07/18 98.4 18 147/67 93 11:13 (93) 05/06/18 Nasal 2.0 11:06 Cannula Intake and Output 05/06/18 05/06/18 05/07/18 1515:00 23:00 07:00 IntakeIntake Total 400 ml 500 ml BalanceBalance 400 ml 500 ml Exam PE: Gen Appearance: No Apparent Distress HEENT: Normocephalic Cardiovascular: Regular rate Abdomen: Soft Extremities: Dry NE: The patient was alert and oriented. Language was normal. Insight was limited. Fund of knowledge was adequate. Pupils were equal and reactive to light. There was no afferent pupillary defect. Visual quiñonez were normal. Funduscopic examination was limited.. Extra-ocular movements were full. Ptosis was absent. There was no nystagmus. Facial sensation was normal. Face was symmetric with normal strength. Hearing was intact. Palate movements were normal. Neck strength was normal. There was normal tongue bulk and speed of movement. Tone was normal. Muscle bulk was normal. I did not see fasciculations. Arms and legs were symmetric.. Vibration sensation was limited distally. Temperature and pinprick sensation was normal. Rapid alternating movements were normal. There was no dysmetria. There was no intention tremor. Gait was somewhat unsteady.. Arm and leg reflexes were symmetric. Tamayo's sign was absent. Plantar responses were flexor. BHUPINDER MENDEZ NP May 07, 2018 14:57 TONA FOSS May 07, 2018 16:03
--- NOTE | 2018-05-07 18:31 | CONS ---
Assessment/Plan Assessment/Plan Assessment/Plan (Daily) 1. accelerated HTN 2. ESRD on HD -MWF schedule at [facility] HD unit 3. acute encephalopathy 4. H/o HTN 5. H/o HL 6. TIA vs rule out stroke Plan: MRI brain negative for jairon, BP now controlled, pt was ordered to have HD today but he refused to do it, He wants to have CT chest first- CT chest with Contrast has been ordered, still pending, afebrile, Bp stable will plan to do HD first in AM, meanwhile we will keep him on MWF schedule will follow up Consultation Date/Type/Reason Admit Date/Time May 06, 2018 at 09:51 Initial Consult Date 05/06/18 Type of Consult NEPHROLOGY Requesting Provider: ROLAND ZIMMERMAN NP Date/Time of Note DATE: 05/07/18 TIME: 18:30 24 HR Interval Summary Free Text/Dictation pt was ordered to have HD today but he refused to do it, CT chest with Contrast has been ordered, still pending, afebrile, Bp stable Exam/Review of Systems Exam Vitals Vital Signs Date Temp Pulse Resp B/P (MAP) Pulse Ox O2 O2 Flow FiO2 Time Delivery Rate 05/07/18 76 16:13 05/07/18 98.2 19 166/76 97 15:52 (106) 05/06/18 Nasal 2.0 11:06 Cannula Intake and Output 05/06/18 05/06/18 05/07/18 1515:00 23:00 07:00 IntakeIntake Total 400 ml 500 ml BalanceBalance 400 ml 500 ml Exam Constitutional: alert, awake, no acute distress Respiratory: clear to auscultation, normal air movement Cardiovascular: regular rate and rhythm, nl pulses Gastrointestinal: soft, non-tender Musculoskeletal: swelling Extremities: normal pulses 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: 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, nl strength, Results Result Diagram: 05/07/18 0609 05/07/18 0609 Results 24hrs Laboratory Tests Test 05/06/18 20:53 05/07/18 06:09 05/07/18 07:40 05/07/18 12:01 Bedside Glucose 137 76 124 White Blood Count 4.1 L Red Blood Count 2.85 L Hemoglobin 8.7 L Hematocrit 26.6 L Mean Corpuscular Volume 93.3 Mean Corpuscular 30.5 Hemoglobin Mean Corpuscular 32.7 Hemoglobin Concent Red Cell Distribution 13.9 Width Platelet Count 143 Mean Platelet Volume 9.1 Immature Granulocytes % 0.200 Neutrophils % 66.8 Lymphocytes % 22.5 Monocytes % 9.3 Eosinophils % 1.0 Basophils % 0.2 Nucleated Red Blood 0.0 Cells % Immature Granulocytes # 0.010 Neutrophils # 2.7 Lymphocytes # 0.9 Monocytes # 0.4 Eosinophils # 0.0 Basophils # 0.0 Nucleated Red Blood 0.0 Cells # Sodium Level 138 Potassium Level 4.3 Chloride Level 93 L Carbon Dioxide Level 31 Anion Gap 14 H Blood Urea Nitrogen 50 H Creatinine 7.63 #H Est Glomerular Filtrat 7 L Rate mL/min Glucose Level 63 #L Calcium Level 8.9 Phosphorus Level 5.5 H Magnesium Level 2.5 Total Bilirubin 0.1 L Direct Bilirubin 0.00 Indirect Bilirubin 0.1 Aspartate Amino 17 Transf (AST/SGOT) Alanine 10 L Aminotransferase (ALT/SG PT) Alkaline Phosphatase 69 Troponin I 0.053 Total Protein 7.2 Albumin 3.8 Globulin 3.40 H Albumin/Globulin Ratio 1.11 Test 05/07/18 17:12 Bedside Glucose 80 Medications Medication Current Medications IV Flush (NS 3 ml) 3 ml PER PROTOCOL IV ; Start 05/06/18 at 12:00 Ondansetron HCl (Zofran Inj) 4 mg Q6H PRN IV NAUSEA/VOMITING; Start 05/06/18 at 12:00 Aspirin (Aspirin) 81 mg DAILY PO Last administered on 05/07/18at 08:55; Admin Dose 81 MG; Start 05/07/18 at 09:00 Acetaminophen (Tylenol Tab) 650 mg Q6H PRN PO .PAIN 1-3 OR TEMP; Start 05/06/18 at 12:00 Heparin Sodium (Porcine) (Heparin (5000 Units/1ml)) 5,000 unit Q8 SC Last administered on 05/07/18at 17:28; Admin Dose 5,000 UNIT; Start 05/06/18 at 14:00 Calcium Acetate (Phoslo) 1,334 mg WITH MEALS PO Last administered on 05/07/18at 17:15; Admin Dose 1,334 MG; Start 05/06/18 at 17:55 Calcium Carbonate (Tums Ex) 500 mg QID PRN PO HEARTBURN; Start 05/06/18 at 12:30 Gabapentin (Neurontin) 200 mg hs PO Last administered on 05/06/18at 20:54; Admin Dose 200 MG; Start 05/06/18 at 21:00 Multivit/Ca Carb/ B Cmplx/FA/Prenat (Abby-Lisa) 1 tab DAILY PO Last administered on 05/07/18at 08:55; Admin Dose 1 TAB; Start 05/07/18 at 09:00 Sevelamer Carbonate (Renvela) 2.4 gm WITH MEALS PO Last administered on 05/07/18at 17:17; Admin Dose 2.4 GM; Start 05/06/18 at 17:55 Insulin Glargine (Lantus) 11 units DAILY@2000 SC Last administered on 05/06/18at 20:57; Admin Dose 11 UNITS; Start 05/06/18 at 20:00 Insulin Aspart (Novolog Insulin Pen) 4 unit WITH MEALS SC ; Start 05/06/18 at 17:55 Insulin Aspart (Novolog Insulin Pen) NOVOLOG *MILD* ALGORITHM WITH MEALS BEDTIME SC ; Start 05/06/18 at 17:55 Miscellaneous Information 1 ea NOTE XX ; Start 05/06/18 at 12:30 Glucose (Glutose) 15 gm Q15M PRN PO DECREASED GLUCOSE; Start 05/06/18 at 12:30 Glucose (Glutose) 22.5 gm Q15M PRN PO DECREASED GLUCOSE; Start 05/06/18 at 12:30 Dextrose (D50w Syringe) 25 ml Q15M PRN IV DECREASED GLUCOSE; Start 05/06/18 at 12:30 Dextrose (D50w Syringe) 50 ml Q15M PRN IV DECREASED GLUCOSE; Start 05/06/18 at 12:30 Glucagon (Glucagen) 1 mg Q15M PRN IM DECREASED GLUCOSE; Start 05/06/18 at 12:30 Glucose (Glutose) 15 gm Q15M PRN BUCCAL DECREASED GLUCOSE; Start 05/06/18 at 12:30 Nifedipine (Procardia Xl) 60 mg DAILY PO ; Start 05/07/18 at 09:00 Hydralazine HCl (Apresoline) 10 mg Q4H PRN IV SBP>160; Start 05/06/18 at 12:30 Albumin Human 100 ml @ 100 mls/hr WITH DIALYSIS PRN IV SBP <90 DURING DIALYSIS; Start 05/06/18 at 12:30 Sodium Chloride (NS) -To prime the dialy... DIRECTED FOR HD PRN IV HD; Start 05/06/18 at 12:30 Nicotine (Nicoderm 7 Mg/ 24 Hr) 1 patch DAILY TRANSDERM ; Start 05/06/18 at 16:00 Atorvastatin Calcium (Lipitor) 40 mg HS PO Last administered on 05/06/18at 20:53; Admin Dose 40 MG; Start 05/06/18 at 21:00 DINAH PEREZ MD May 07, 2018 18:31
[2018-05-07] MEDS: GABAPENTIN 100 MG CAP PO SCH (20:54)
[2018-05-07] MEDS: ATORVASTATIN 40 MG TAB PO SCH (20:54)
[2018-05-07] MEDS: INSULIN GLARGINE [LANTus] (100 UNITS/ML) SYG SC SCH (21:02)
[2018-05-08] VITALS (25 sets, daily range): BP systolic 106–177; BP diastolic 52–78; PULSE 68–97; RESP 16–19
[2018-05-08] MEDS: HEPARIN 5,000 UNIT/1 ML VIAL SC SCH ×2 (06:39→15:25)
[2018-05-08] MEDS: INSULIN ASPART [NOVOLOG] 3 ML PEN SC SCH ×4 (07:55→12:34)
[2018-05-08] MEDS: CALCIUM ACETATE 667 MG CAP PO SCH ×2 (08:16→12:31)
[2018-05-08] MEDS: ASPIRIN 81 MG TAB PO SCH (08:16)
[2018-05-08] MEDS: MULTIVIT/CA CARB/B CMPLX/FA TAB PO SCH (08:16)
[2018-05-08] MEDS: NICOTINE (7 MG/24 HR) PATCH TRANSDERM SCH (08:16)
[2018-05-08] MEDS: SEVELAMER CARBONATE 0.8 GM PKT PO SCH ×2 (08:16→12:30)
--- NOTE | 2018-05-08 08:42 | CONS ---
Assessment/Plan Assessment/Plan Assessment/Plan (Daily) 1. accelerated HTN 2. ESRD on HD -MWF schedule at [facility] HD unit 3. acute encephalopathy 4. H/o HTN 5. H/o HL 6. TIA vs rule out stroke Plan: MRI brain negative for storke, BP now controlled, s/p CT chest with contrast that showed No evidence of PE/Dissection, Moderate right and small left pleural effusion plan for HD today will follow up Consultation Date/Type/Reason Admit Date/Time May 06, 2018 at 09:51 Initial Consult Date 05/06/18 Type of Consult NEPHROLOGY Requesting Provider: ROLAND ZIMMERMAN NP Date/Time of Note DATE: 05/08/18 TIME: 08:41 Exam/Review of Systems Exam Vitals Vital Signs Date Temp Pulse Resp B/P (MAP) Pulse Ox O2 O2 Flow FiO2 Time Delivery Rate 05/08/18 80 08:06 05/08/18 97.7 18 168/74 98 07:58 (105) 05/06/18 Nasal 2.0 11:06 Cannula Intake and Output 05/07/18 05/07/18 05/08/18 1515:00 23:00 07:00 IntakeIntake Total 600 ml 400 ml BalanceBalance 600 ml 400 ml Results Result Diagram: 05/08/18 0753 05/07/18 0609 Results 24hrs Laboratory Tests Test 05/07/18 12:01 05/07/18 17:12 05/07/18 20:30 05/08/18 07:50 Bedside Glucose 124 80 121 64 L Test 05/08/18 07:53 05/08/18 08:08 White Blood Count 4.8 Red Blood Count 2.93 L Hemoglobin 8.8 L Hematocrit 26.3 L Mean Corpuscular Volume 89.8 Mean Corpuscular 30.0 Hemoglobin Mean Corpuscular 33.5 Hemoglobin Concent Red Cell Distribution 13.7 Width Platelet Count 149 Mean Platelet Volume 9.0 Immature Granulocytes % 0.200 Neutrophils % 70.8 Lymphocytes % 18.2 Monocytes % 9.4 Eosinophils % 1.0 Basophils % 0.4 Nucleated Red Blood 0.0 Cells % Immature Granulocytes # 0.010 Neutrophils # 3.4 Lymphocytes # 0.9 Monocytes # 0.5 Eosinophils # 0.1 Basophils # 0.0 Nucleated Red Blood 0.0 Cells # Bedside Glucose 77 Medications Medication Current Medications IV Flush (NS 3 ml) 3 ml PER PROTOCOL IV ; Start 05/06/18 at 12:00 Ondansetron HCl (Zofran Inj) 4 mg Q6H PRN IV NAUSEA/VOMITING; Start 05/06/18 at 12:00 Aspirin (Aspirin) 81 mg DAILY PO Last administered on 05/08/18 08:16; Admin Dose 81 MG; Start 05/07/18 at 09:00 Acetaminophen (Tylenol Tab) 650 mg Q6H PRN PO .PAIN 1-3 OR TEMP; Start 05/06/18 at 12:00 Heparin Sodium (Porcine) (Heparin (5000 Units/1ml)) 5,000 unit Q8 SC Last administered on 05/08/18 06:39; Admin Dose 5,000 UNIT; Start 05/06/18 at 14:00 Calcium Acetate (Phoslo) 1,334 mg WITH MEALS PO Last administered on 05/08/18 08:16; Admin Dose 1,334 MG; Start 05/06/18 at 17:55 Calcium Carbonate (Tums Ex) 500 mg QID PRN PO HEARTBURN; Start 05/06/18 at 12:30 Gabapentin (Neurontin) 200 mg hs PO Last administered on 05/07/18 20:54; Admin Dose 200 MG; Start 05/06/18 at 21:00 Multivit/Ca Carb/ B Cmplx/FA/Prenat (Abby-Lisa) 1 tab DAILY PO Last adminis tered on 05/08/18 08:16; Admin Dose 1 TAB; Start 05/07/18 at 09:00 Sevelamer Carbonate (Renvela) 2.4 gm WITH MEALS PO Last administered on 05/08/18 08:16; Admin Dose 2.4 GM; Start 05/06/18 at 17:55 Insulin Glargine (Lantus) 11 units DAILY@2000 SC Last administered on 05/07/18 21:02; Admin Dose 11 UNITS; Start 05/06/18 at 20:00 Insulin Aspart (Novolog Insulin Pen) 4 unit WITH MEALS SC Last administered on 05/08/18 08:11; Admin Dose 4 UNIT; Start 05/06/18 at 17:55 Insulin Aspart (Novolog Insulin Pen) NOVOLOG *MILD* ALGORITHM WITH MEALS BEDTIME SC ; Start 05/06/18 at 17:55 Miscellaneous Information 1 ea NOTE XX ; Start 05/06/18 at 12:30 Glucose (Glutose) 15 gm Q15M PRN PO DECREASED GLUCOSE; Start 05/06/18 at 12:30 Glucose (Glutose) 22.5 gm Q15M PRN PO DECREASED GLUCOSE; Start 05/06/18 at 12:30 Dextrose (D50w Syringe) 25 ml Q15M PRN IV DECREASED GLUCOSE; Start 05/06/18 at 12:30 Dextrose (D50w Syringe) 50 ml Q15M PRN IV DECREASED GLUCOSE; Start 05/06/18 at 12:30 Glucagon (Glucagen) 1 mg Q15M PRN IM DECREASED GLUCOSE; Start 05/06/18 at 12:30 Glucose (Glutose) 15 gm Q15M PRN BUCCAL DECREASED GLUCOSE; Start 05/06/18 at 12:30 Nifedipine (Procardia Xl) 60 mg DAILY PO ; Start 05/07/18 at 09:00 Hydralazine HCl (Apresoline) 10 mg Q4H PRN IV SBP>160; Start 05/06/18 at 12:30 Albumin Human 100 ml @ 100 mls/hr WITH DIALYSIS PRN IV SBP <90 DURING DIALYSIS; Start 05/06/18 at 12:30 Sodium Chloride (NS) -To prime the dialy... DIRECTED FOR HD PRN IV HD; Start 05/06/18 at 12:30 Nicotine (Nicoderm 7 Mg/ 24 Hr) 1 patch DAILY TRANSDERM Last administered on 05/08/18at 08:16; Admin Dose 1 PATCH; Start 05/06/18 at 16:00 Atorvastatin Calcium (Lipitor) 40 mg HS PO Last administered on 05/07/18at 20:54; Admin Dose 40 MG; Start 05/06/18 at 21:00 DINAH PEREZ MD May 08, 2018 08:41
--- NOTE | 2018-05-08 12:27 | RADRPT ---
Echocardiogram Report Patient Name: POLY MOMINPatient ID: [id number] : 1950 (67y 12m)Study Date: 05/07/2018 9:47:32 AM Gender: Olenaion #: [id number] Tech: Nabor Yip [facility] Location: 510[address] Ref.Physician: ROLAND ZIMMERMAN Height(Cm): BSA: Weight(Kg): Quality: AdequateAccount #: Procedures: Echocardiographic Report: Transthoracic echocardiogram with complete 2D, M-Mode, and doppler examination. Indications: Evaluate Left Ventricular function w/ buhble study. Measurements: 2D/M Mode Doppler Measurement Value Normal Range Measurement Value Normal Range LVIDd 2D 4.4 [ 4.2 - 5.8 ] cm AV Peak Preet 1.4 [ 100.0 - 170.0 ] cm/sec LVIDs 2D 2.9 [ 2.5 - 4.0 ] cm AV Peak PG 8.0 [ 2.0 - 9.0 ] mmHg LVPWd 2D 1.3 [ 0.6 - 1.0 ] cm LVOT Peak Preet 1.1 [ 70.0 - 110.0 ] cm/sec IVSd 2D 1.3 [ 0.6 - 1.0 ] cm LVOT Peak PG 4.0 [ 2.0 - 6.0 ] mmHg IVS/LVPW 2D 1.0 ratio MV E Peak Preet 1.0 [ 60.0 - 130.0 ] cm/sec AoR Diam 2D 2.9 [ 2.6 - 3.4 ] cm MV A Peak Preet 1.4 [ 100.0 - 120.0 ] cm/sec LA/Ao 2D 2 ratio MV E/A 0.7 [ 0.8 - 1.5 ] ratio LA Dimen 2D 4.6 [ 3.0 - 4.0 ] cm MV Decel Time 201 [ 104 - 258 ] msec Lat E` Preet 0.1 [ 10.0 - 15.0 ] cm/sec Med E` Preet 0.1 cm/sec MV E/A 0.7 [ 0.8 - 1.5 ] ratio TR Peak Preet 2.5 [ 100.0 - 280.0 ] cm/sec TR Peak PG 25.0 mmHg RVSP 35.0 [ 10.0 - 36.0 ] mmHg Findings: Left Ventricle: Normal left ventricular systolic function. Normal left ventricular cavity size. Mild concentric left ventricular hypertrophy. Ejection fraction is visually estimated at 60 %. Tissue Doppler/Mitral Doppler indices are consistent with impaired relaxation (Stage I diastolic dysfunction). Right Ventricle: Normal right ventricular size. Normal right ventricular systolic function. Left Atrium: There is moderate enlargement of left atrium. Right Atrium: The right atrium is normal in size. Atrial Septum: Bubble study was performed with and with out valsalva indicating no evidence of intra atrial shunt. Mitral Valve: Mild mitral leaflet calcification. Mild mitral annular calcification. Trace mitral regurgitation. Aortic Valve: Aortic cusps appear mildly calcified. Trace aortic valve regurgitation. Tricuspid Valve: Normal appearance of the tricuspid valve. Estimated peak PA systolic pressure 35 mmHg. There is mild tricuspid regurgitation. Pulmonic Valve: Normal pulmonic valve appearance. Pericardium: Normal pericardium with no significant pericardial effusion. Aorta: Normal aortic root. IVC: Normal size and normal respiratory collapse consistent with normal right atrial pressure. Conclusions: Normal left ventricular systolic function. Normal left ventricular cavity size. Mild concentric left ventricular hypertrophy. Ejection fraction is visually estimated at 60 %. Tissue Doppler/Mitral Doppler indices are consistent with impaired relaxation (Stage I diastolic dysfunction). There is moderate enlargement of left atrium. Mild mitral leaflet calcification. Mild mitral annular calcification. Trace mitral regurgitation. Aortic cusps appear mildly calcified. Trace aortic valve regurgitation. n. Normal appearance of the tricuspid valve. Estimated peak PA systolic pressure 35 mmHg. There is mild tricuspid regurgitation. Electronically Signed By: Da Weaver 2018-05-08 12:26:18 PST
--- NOTE | 2018-05-08 14:06 | CONS ---
Assessment/Plan Assessment/Plan Assessment/Plan (Daily) End-stage renal disease Possible TIA Left subclavian artery stenosis She is not symptomatic at the present time Following my office for further evaluation and management of left subclavian artery stenosis Consultation Date/Type/Reason Admit Date/Time May 06, 2018 at 09:51 Date of Consultation: May 08, 2018 Type of Consult Vascular surgery Reason for Consultation Stenosis left subclavian artery Date/Time of Note DATE: 05/08/18 TIME: 14:04 Hx of Present Illness 61-year-old male with a history of hypertension diabetes currently on dialysis per left forearm Derick fistula patient has had previous angioplasties of the left subclavian artery currently being admitted because of a possible TIA part of the workup is included a CAT scan of the head which has showed a 40% stenosis in the left subclavian artery Past Medical History Medical History: high cholesterol, hypertension, other (ESRD on HD ) Home Meds Reported Medications Sevelamer Carbonate* (Renvela*) 800 Mg Tablet, 2400 MG PO WITH MEALS, TAB 05/06/18 Multivit/Ca Carb/B Cmplx/Fa* (Abby-Lisa*) 1 Tab Tab, 1 TAB PO DAILY, TAB 05/06/18 Calcium Acetate* (Phoslo*) 667 Mg Tablet, 1334 MG PO WITH MEALS, TAB 05/06/18 Insulin Human Regular (Novolin-R U-100) 100 Unit/Ml Soln, 12 UNITS SC TID, EA 05/06/18 Insulin NPH Human Isophane (Humulin N) 100 Unit/1 Ml Vial, 8 UNIT SQ BID WITH MEALS for lunch and dinner, VIAL 05/06/18 Insulin NPH Human Isophane (Humulin N) 100 Unit/1 Ml Vial, 12 UNIT SQ am, VIAL 05/06/18 Gabapentin* (Gabapentin*) 100 Mg Capsule, 200 MG PO hs, #180 CAP 05/06/18 Gabapentin* (Gabapentin*) 100 Mg Capsule, 100 MG PO morning, #90 CAP 05/06/18 Amlodipine Besylate* (Norvasc*) 5 Mg Tablet, 5 MG PO DAILY, TAB 05/06/18 Calcium Carbonate (Tums) 300 Mg Tab.chew, 500 MG PO QID PRN for HEARTBURN, TAB.CHEW 05/06/18 Loperamide Hcl* (Loperamide Hcl*) 2 Mg Cap, 2 MG PO Q6H PRN for DIARRHEA, CAP 05/06/18 Nitroglycerin* (Nitrostat*) 0.4 Mg Tab.subl, 0.4 MG SL Q5MIN PRN for CHEST PAIN, BOTTLE 05/06/18 Clonidine Hcl* (Clonidine Hcl*) 0.1 Mg Tab, 0.1 MG PO TID PRN for for sbp>180, TAB 05/06/18 Acetaminophen* (Acetaminophen*) 650 Mg Tablet, 650 MG PO Q6H PRN for PAIN AND OR ELEVATED TEMP, #30 TAB 05/06/18 Iron Sucrose* (Venofer*) 100 Mg/5 Ml Vial, 50 MG IV weekly, VIAL 05/06/18 Epoetin abebe* (Epogen*) 3,000 Unit/1 Ml Vial, 3600 UNIT SC MONWEDFRI, VIAL 05/06/18 Medications Current Medications IV Flush (NS 3 ml) 3 ml PER PROTOCOL IV ; Start 05/06/18 at 12:00 Ondansetron HCl (Zofran Inj) 4 mg Q6H PRN IV NAUSEA/VOMITING; Start 05/06/18 at 12:00 Aspirin (Aspirin) 81 mg DAILY PO Last administered on 05/08/18at 08:16; Admin Dose 81 MG; Start 05/07/18 at 09:00 Acetaminophen (Tylenol Tab) 650 mg Q6H PRN PO .PAIN 1-3 OR TEMP; Start 05/06/18 at 12:00 Heparin Sodium (Porcine) (Heparin (5000 Units/1ml)) 5,000 unit Q8 SC Last administered on 05/08/18at 06:39; Admin Dose 5,000 UNIT; Start 05/06/18 at 14:00 Calcium Acetate (Phoslo) 1,334 mg WITH MEALS PO Last administered on 05/08/18at 12:31; Admin Dose 1,334 MG; Start 05/06/18 at 17:55 Calcium Carbonate (Tums Ex) 500 mg QID PRN PO HEARTBURN; Start 05/06/18 at 12:30 Gabapentin (Neurontin) 200 mg hs PO Last administered on 05/07/18at 20:54; Admin Dose 200 MG; Start 05/06/18 at 21:00 Multivit/Ca Carb/ B Cmplx/FA/Prenat (Abby-Lisa) 1 tab DAILY PO Last administered on 05/08/18 08:16; Admin Dose 1 TAB; Start 05/07/18 at 09:00 Sevelamer Carbonate (Renvela) 2.4 gm WITH MEALS PO Last administered on 05/08/18at 12:30; Admin Dose 2.4 GM; Start 05/06/18 at 17:55 Insulin Glargine (Lantus) 11 units DAILY@2000 SC Last administered on 05/07/18at 21:02; Admin Dose 11 UNITS; Start 05/06/18 at 20:00 Insulin Aspart (Novolog Insulin Pen) 4 unit WITH MEALS SC Last administered on 05/08/18 12:34; Admin Dose 4 UNIT; Start 05/06/18 at 17:55 Insulin Aspart (Novolog Insulin Pen) NOVOLOG *MILD* ALGORITHM WITH MEALS BEDTIME SC Last administered on 05/08/18 12:34; Admin Dose 1 UNIT; Start 05/06/18 at 17:55 Miscellaneous Information 1 ea NOTE XX ; Start 05/06/18 at 12:30 Glucose (Glutose) 15 gm Q15M PRN PO DECREASED GLUCOSE; Start 05/06/18 at 12:30 Glucose (Glutose) 22.5 gm Q15M PRN PO DECREASED GLUCOSE; Start 05/06/18 at 12:30 Dextrose (D50w Syringe) 25 ml Q15M PRN IV DECREASED GLUCOSE; Start 05/06/18 at 12:30 Dextrose (D50w Syringe) 50 ml Q15M PRN IV DECREASED GLUCOSE; Start 05/06/18 at 12:30 Glucagon (Glucagen) 1 mg Q15M PRN IM DECREASED GLUCOSE; Start 05/06/18 at 12:30 Glucose (Glutose) 15 gm Q15M PRN BUCCAL DECREASED GLUCOSE; Start 05/06/18 at 12: 30 Nifedipine (Procardia Xl) 60 mg DAILY PO ; Start 05/07/18 at 09:00 Hydralazine HCl (Apresoline) 10 mg Q4H PRN IV SBP>160; Start 05/06/18 at 12:30 Albumin Human 100 ml @ 100 mls/hr WITH DIALYSIS PRN IV SBP <90 DURING DIALYSIS; Start 05/06/18 at 12:30 Sodium Chloride (NS) -To prime the dialy... DIRECTED FOR HD PRN IV HD; Start 05/06/18 at 12:30 Nicotine (Nicoderm 7 Mg/ 24 Hr) 1 patch DAILY TRANSDERM Last administered on 05/08/18at 08:16; Admin Dose 1 PATCH; Start 05/06/18 at 16:00 Atorvastatin Calcium (Lipitor) 40 mg HS PO Last administered on 05/07/18at 20:54; Admin Dose 40 MG; Start 05/06/18 at 21:00 Allergies: Coded Allergies: No Known Allergy (Unverified , 05/08/18) Past Surgical History Past Surgical Hx: other (LUE AVF ) Social History Alcohol Use: none Smoking Status: Current some day smoker Drug Use: none Exam/Review of Systems Exam Vitals Vital Signs Date Temp Pulse Resp B/P (MAP) Pulse Ox O2 O2 Flow FiO2 Time Delivery Rate 05/08/18 76 16 129/55 98 Room Air 12:34 (79) 05/08/18 98.6 11:11 05/06/18 2.0 11:06 Intake and Output 05/07/18 05/07/18 05/08/18 1515:00 23:00 07:00 IntakeIntake Total 600 ml 400 ml BalanceBalance 600 ml 400 ml Eyes: nl conjunctiva, EOMI, nl lids, nl sclera, PERRL ENMT: nl external ears & nose, nl lips & teeth, nl nasal mucosa & septum Neck: supple, non-tender Respiratory: clear to auscultation, normal air movement Cardiovascular: regular rate and rhythm, nl pulses Gastrointestinal: soft, nl liver, spleen, non-tender Musculoskeletal: nl extremities to inspection, nl gait and stance Extremities: normal pulses Additional Comments Left Derick fistula in place with a thrill and bruit palpable radial pulse palpable brachial pulse no signs of ischemia Results Result Diagram: 05/08/18 0753 05/08/18 0753 Results 24hrs Laboratory Tests Test 05/07/18 17:12 05/07/18 20:30 05/08/18 07:50 05/08/18 07:53 Bedside Glucose 80 121 64 L White Blood Count 4.8 Red Blood Count 2.93 L Hemoglobin 8.8 L Hematocrit 26.3 L Mean Corpuscular Volume 89.8 Mean Corpuscular 30.0 Hemoglobin Mean Corpuscular 33.5 Hemoglobin Concent Red Cell Distribution 13.7 Width Platelet Count 149 Mean Platelet Volume 9.0 Immature Granulocytes % 0.200 Neutrophils % 70.8 Lymphocytes % 18.2 Monocytes % 9.4 Eosinophils % 1.0 Basophils % 0.4 Nucleated Red Blood 0.0 Cells % Immature Granulocytes # 0.010 Neutrophils # 3.4 Lymphocytes # 0.9 Monocytes # 0.5 Eosinophils # 0.1 Basophils # 0.0 Nucleated Red Blood 0.0 Cells # Sodium Level 137 Potassium Level 5.2 H Chloride Level 91 L Carbon Dioxide Level 27 Anion Gap 19 H Blood Urea Nitrogen 70 H Creatinine 10.20 #H Est Glomerular Filtrat 5 L Rate mL/min Glucose Level 57 L Calcium Level 9.0 Phosphorus Level 6.2 H Magnesium Level 2.7 H Hepatitis B Surface NEGATIVE Antigen Test 05/08/18 08:08 05/08/18 12:27 Bedside Glucose 77 151 Medications Medication Current Medications IV Flush (NS 3 ml) 3 ml PER PROTOCOL IV ; Start 05/06/18 at 12:00 Ondansetron HCl (Zofran Inj) 4 mg Q6H PRN IV NAUSEA/VOMITING; Start 05/06/18 at 12:00 Aspirin (Aspirin) 81 mg DAILY PO Last administered on 05/08/18at 08:16; Admin D ose 81 MG; Start 05/07/18 at 09:00 Acetaminophen (Tylenol Tab) 650 mg Q6H PRN PO .PAIN 1-3 OR TEMP; Start 05/06/18 at 12:00 Heparin Sodium (Porcine) (Heparin (5000 Units/1ml)) 5,000 unit Q8 SC Last a dministered on 05/08/18at 06:39; Admin Dose 5,000 UNIT; Start 05/06/18 at 14:00 Calcium Acetate (Phoslo) 1,334 mg WITH MEALS PO Last administered on 05/08/18at 12:31; Admin Dose 1,334 MG; Start 05/06/18 at 17:55 Calcium Carbonate (Tums Ex) 500 mg QID PRN PO HEARTBURN; Start 05/06/18 at 12:30 Gabapentin (Neurontin) 200 mg hs PO Last administered on 05/07/18at 20:54; Admin Dose 200 MG; Start 05/06/18 at 21:00 Multivit/Ca Carb/ B Cmplx/FA/Prenat (Abby-Lisa) 1 tab DAILY PO Last administered on 3/6/19at 08:16; Admin Dose 1 TAB; Start 05/07/18 at 09:00 Sevelamer Carbonate (Renvela) 2.4 gm WITH MEALS PO Last administered on 05/08/18 12:30; Admin Dose 2.4 GM; Start 05/06/18 at 17:55 Insulin Glargine (Lantus) 11 units DAILY@2000 SC Last administered on 05/07/18 21:02; Admin Dose 11 UNITS; Start 05/06/18 at 20:00 Insulin Aspart (Novolog Insulin Pen) 4 unit WITH MEALS SC Last administered on 05/08/18 12:34; Admin Dose 4 UNIT; Start 05/06/18 at 17:55 Insulin Aspart (Novolog Insulin Pen) NOVOLOG *MILD* ALGORITHM WITH MEALS BEDTIME SC Last administered on 05/08/18 12:34; Admin Dose 1 UNIT; Start 05/06/18 at 17:55 Miscellaneous Information 1 ea NOTE XX ; Start 05/06/18 at 12:30 Glucose (Glutose) 15 gm Q15M PRN PO DECREASED GLUCOSE; Start 05/06/18 at 12:30 Glucose (Glutose) 22.5 gm Q15M PRN PO DECREASED GLUCOSE; Start 05/06/18 at 12:30 Dextrose (D50w Syringe) 25 ml Q15M PRN IV DECREASED GLUCOSE; Start 05/06/18 at 12:30 Dextrose (D50w Syringe) 50 ml Q15M PRN IV DECREASED GLUCOSE; Start 05/06/18 at 12:30 Glucagon (Glucagen) 1 mg Q15M PRN IM DECREASED GLUCOSE; Start 05/06/18 at 12:30 Glucose (Glutose) 15 gm Q15M PRN BUCCAL DECREASED GLUCOSE; Start 05/06/18 at 12:30 Nifedipine (Procardia Xl) 60 mg DAILY PO ; Start 05/07/18 at 09:00 Hydralazine HCl (Apresoline) 10 mg Q4H PRN IV SBP>160; Start 05/06/18 at 12:30 Albumin Human 100 ml @ 100 mls/hr WITH DIALYSIS PRN IV SBP <90 DURING DIALYSIS; Start 05/06/18 at 12:30 Sodium Chloride (NS) -To prime the dialy... DIRECTED FOR HD PRN IV HD; Start 05/06/18 at 12:30 Nicotine (Nicoderm 7 Mg/ 24 Hr) 1 patch DAILY TRANSDERM Last administered on 05/08/18at 08:16; Admin Dose 1 PATCH; Start 05/06/18 at 16:00 Atorvastatin Calcium (Lipitor) 40 mg HS PO Last administered on 05/07/18at 20:54; Admin Dose 40 MG; Start 05/06/18 at 21:00 HONG DURANT MD May 08, 2018 14:06
[2018-05-08] MEDS ORDERED: NIFE60TA2 PO (14:22)
[2018-05-08] MEDS ORDERED: ATOR40TA68 PO (14:22)
[2018-05-08] MEDS ORDERED: ASPI-831 PO (14:22)
[2018-05-08] MEDS ORDERED: ALBU8.5H8 INH (14:29)
--- NOTE | 2018-05-08 14:29 | PDOCDIS ---
Discharge Instructions CONDITION [id number] Patient Condition: [id number] Stable HOME CARE INSTRUCTIONS: [id number] Special Diet: [id number] Low carbohydrate, low potassium FOLLOW UP/APPOINTMENTS Follow-up Plan 1. Desean Austin MD Specialty: Vascular Surgery Office Address [address] [facility] [address] [place] [address] Office 2. Mary Cantor MD Specialty: Neurology Office Address [address] [facility] [place] [address] Office OTHER ORDERS: Other Orders: 1. Take medications as per prescription. Start taking nifedipine XL for your blood pressure. Start taking aspirin and Lipitor. 2. Take a low carbohydrate, low potassium diet. 3. Follow-up with outpatient vascular surgery (Dr. Austin) regarding your narrowed artery in your chest. Please call for appointment. 4. Follow-up with outpatient neurology (Dr. Cantor). Please call for appointment. 5. Resume activities as tolerated. 6. Please go to the nearest emergency room if you have any chest pain, sudden onset of focal weakness, slurred speech, or any other unusual signs/symptoms. ROLAND ZIMMERMAN NP May 08, 2018 14:29
[2018-05-08] MEDS: NIFEdipine (XL) 60 MG TAB PO SCH (14:42)
--- NOTE | 2018-05-08 15:12 | DS ---
Date/Time of Note Date/Time of Note DATE: 05/08/18 TIME: 15:12 Discharge Summary Admission/Discharge Info Admit Date/Time May 06, 2018 at 09:51 Discharge Date/Time Discharge Diagnosis 1. Acute encephalopathy. 2. Right cavernous internal carotid artery moderate to severe stenosis; left cavernous and proximal supraclinoid internal carotid artery mild stenoses; left V4 vertebral artery mild stenosis. 3. Left subclavian artery stenosis. 4. Hypertension. 5. Diabetes mellitus. Hemoglobin A1c 6.2. 6. End-stage renal disease on hemodialysis. 7. Dyslipidemia. 8. Normocytic anemia. 9. Nicotine use. 10. Emphysema. Patient Condition: Stable Consults 1. Mary Cantor MD, Neurology. 2. Prince Harrington MD, Nephrology. 3. Desean Austin MD, Vascular Surgery. 4. Aroldo Brewer MD, Neurosurgery. Procedures Head CTA IMPRESSION: CTA Head 1. No intracranial large arterial thrombus or occlusion. 2. Right cavernous internal carotid artery moderate to severe stenosis. 3. Left cavernous and proximal supraclinoid internal carotid artery mild stenoses. 4. Left V4 vertebral artery mild stenosis. 5. No cerebral aneurysm. CTA Neck 1. No bilateral cervical internal carotid artery stenosis by NASCET criteria. As per NASCET criteria, direct measurement of vessel diameter was made in reference to measurement of the ipsilateral distal internal carotid artery diameter. 2. Right vertebral artery origin focal moderate stenosis. 3. No left V1-V3 vertebral artery significant stenosis. 4. 40% focal stenosis just distal to the origin of the left subclavian artery secondary to eccentric calcific atherosclerotic plaque. 5. Moderate to severe centrilobular and paraseptal emphysema of the partially imaged upper lungs bilaterally. 6. Tenacious secretions within the trachea with extension of thin tenacious secretions extending into the visualized proximal right mainstem bronchus. Attention on follow-up imaging to ensure clearing of secretions and no under lying nodularity or small tracheal mass. 7. Abnormal increased number of prominent mediastinal and left axillary lymph nodes, none meeting size criteria for pathology. A few abnormally prominent bilateral internal mammary lymph nodes are also noted. Findings raise concern for possible occult malignancy. Recommend dedicated CT chest with contrast for further evaluation. Correlation with age and risk factor appropriate cancer screening tests is also suggested. 8. Partially imaged right pleural effusion. 9. Cervical spine diffuse idiopathic skeletal hyperostosis (DISH). 2D Echocardiogram Conclusions: Normal left ventricular systolic function. Normal left ventricular cavity size. Mild concentric left ventricular hypertrophy. Ejection fraction is visually estimated at 60 %. Tissue Doppler/Mitral Doppler indices are consistent with impaired relaxation (Stage I diastolic dysfunction). There is moderate enlargement of left atrium. Mild mitral leaflet calcification. Mild mitral annular calcification. Trace mitral regurgitation. Aortic cusps appear mildly calcified. Trace aortic valve regurgitation. Normal appearance of the tricuspid valve. Estimated peak PA systolic pressure 35 mmHg. There is mild tricuspid regurgitation. Brain MRI IMPRESSION: 1. No acute intracranial pathology. 2. Mild volume loss with very mild chronic microvascular ischemic changes. CTA Chest IMPRESSION: No evidence of pulmonary embolism or aortic dissection. Moderate right and small left-sided pleural effusions with underlying atelectasis. Moderate centrolobular emphysema. Hx of Present Illness This is a 67-year-old male with past medical history of hypertension, diabetes type 2, end-stage renal disease on hemodialysis, dyslipidemia, and anemia. The patient went to his hemodialysis clinic as scheduled on 05/06/2018. The patient apparently became confused. Therefore, the patient was transferred to [facility] for further evaluation and management. The patient denied any headache, chest pain, palpitations, or dyspnea. The patient does not remember what happened after he was initiated on hemodialysis. There was no reported falls. In the emergency room, the patient was evaluated by tele- neurologist who recommended no TPA. The patient's brain CT scan was negative for any acute findings. The patient's troponins were negative. The patient's chest x-ray was showing mild cardiomegaly with pulmonary vascular congestion and bibasilar linear atelectatic changes. Hospital Course The patient was admitted to inpatient setting. A neurology consult was obtained. The patient's brain CT and brain MRI was negative for any stroke. The patient's head CT showed a right cavernous internal carotid artery with moderate to severe stenosis along with left cavernous and proximal supraclinoid internal carotid artery with mild stenosis. Therefore, a neurosurgery consult was obtained. The patient was maintained on aspirin and statins. Neurosurgery saw and evaluated the patient and recommended medical management. Etiology of the patient's acute encephalopathy could have been most probably toxic metabolic in origin. The patient also had 40% focal stenosis of the left subclavian artery. Therefore, vascular surgery consult was obtained. The vascular surgeon recommended outpatient follow-up. The patient's acute encephalopathy has completely resolved. The patient's chronic problems include essential hypertension. The patient was maintained on antihypertensives. Initially, permissive hypertension was provided for possible stroke. However, will once stroke was ruled out, the patient was maintained on antihypertensive therapy. The patient has underlying diabetes mellitus. The patient's hemoglobin A1c was 6.2. The patient was maintained on sliding scale insulin along with pre-meal insulin and basal insulin. The patient is an end-stage renal disease patient with hemodialysis days on Mondays, Wednesdays, and Fridays. The patient was being followed by nephrology during the hospital course and the patient received hemodialysis on his scheduled days. The patient has underlying dyslipidemia. The patient was maintained on statins. The patient was noticed to have normocytic anemia. This could be anemia of chronic disease. The patient's H&H remained stable. The patient was also noticed to have significant emphysema on his chest imaging. The patient will be started on PRN TAMMY upon discharge. The patient is a current nicotine user. The patient was provided with a nicotine patch during the hospitalization. The patient was advised on quitting the use of nicotine. The patient had a stable hospital course. The patient is stable to be discharged home. The patient denied any complaints at the time of discharge. Discharge Instructions 1. Take medications as per prescription. Start taking nifedipine XL for your blood pressure. Start taking aspirin and Lipitor. 2. Take a low carbohydrate, low potassium diet. 3. Follow-up with outpatient vascular surgery (Dr. Austin) regarding your narrowed artery in your chest. Please call for appointment. 4. Follow-up with outpatient neurology (Dr. Cantor). Please call for appointment. 5. Resume activities as tolerated. 6. Please go to the nearest emergency room if you have any chest pain, sudden onset of focal weakness, slurred speech, or any other unusual signs/symptoms. The patient verbalized understanding of his discharge instructions. At this time I would like to thank all the consultants for seeing the patient and providing clinical recommendations. The patient was seen in collaboration with Dr. Flood. Home Meds Active Scripts Albuterol Sulfate* (Proair HFA*) 8.5 Gm Hfa.aer.ad, 2 PUFF INH Q6H PRN for WHEEZING AND SOB, #1 INHALER Prov:ROLAND ZIMMERMAN [employer] 05/08/18 Aspirin (Aspirin) 81 Mg Chew, 81 MG PO DAILY, #30 TAB Prov:ROLAND ZIMMERMAN [employer] 05/08/18 Atorvastatin* (Atorvastatin*) 40 Mg Tablet, 40 MG PO HS, #30 TAB Prov:ROLAND ZIMMERMAN [employer] SUPER[employer]OR 05/08/18 Nifedipine (Procardia Xl) 60 Mg Tab.er.24, 60 MG PO DAILY, #30 TAB Prov:ROLAND ZIMMERMAN [employer]PER[employer]OR 05/08/18 Reported Medications Sevelamer Carbonate* (Renvela*) 800 Mg Tablet, 2400 MG PO WITH MEALS, TAB 05/06/18 Multivit/Ca Carb/B Cmplx/Fa* (Abby-Lisa*) 1 Tab Tab, 1 TAB PO DAILY, TAB 05/06/18 Calcium Acetate* (Phoslo*) 667 Mg Tablet, 1334 MG PO WITH MEALS, TAB 05/06/18 Insulin Human Regular (Novolin-R U-100) 100 Unit/Ml Soln, 12 UNITS SC TID, EA 05/06/18 Insulin NPH Human Isophane (Humulin N) 100 Unit/1 Ml Vial, 8 UNIT SQ BID WITH MEALS for lunch and dinner, VIAL 05/06/18 Insulin NPH Human Isophane (Humulin N) 100 Unit/1 Ml Vial, 12 UNIT SQ am, VIAL 05/06/18 Gabapentin* (Gabapentin*) 100 Mg Capsule, 200 MG PO hs, #180 CAP 05/06/18 Gabapentin* (Gabapentin*) 100 Mg Capsule, 100 MG PO morning, #90 CAP 05/06/18 Calcium Carbonate (Tums) 300 Mg Tab.chew, 500 MG PO QID PRN for HEARTBURN, TAB .CHEW 05/06/18 Nitroglycerin* (Nitrostat*) 0.4 Mg Tab.subl, 0.4 MG SL Q5MIN PRN for CHEST PAIN, BOTTLE 05/06/18 Acetaminophen* (Acetaminophen*) 650 Mg Tablet, 650 MG PO Q6H PRN for PAIN AND OR ELEVATED TEMP, #30 TAB 05/06/18 Iron Sucrose* (Venofer*) 100 Mg/5 Ml Vial, 50 MG IV weekly, VIAL 05/06/18 Epoetin abebe* (Epogen*) 3,000 Unit/1 Ml Vial, 3600 UNIT SC MONWEDFRI, VIAL 05/06/18 Discontinued Reported Medications Amlodipine Besylate* (Norvasc*) 5 Mg Tablet, 5 MG PO DAILY, TAB 05/06/18 Loperamide Hcl* (Loperamide Hcl*) 2 Mg Cap, 2 MG PO Q6H PRN for DIARRHEA, CAP 05/06/18 Clonidine Hcl* (Clonidine Hcl*) 0.1 Mg Tab, 0.1 MG PO TID PRN for for sbp>180, TAB 05/06/18 Follow-up Plan 1. Desean Austin MD Specialty: Vascular Surgery Office Address [address] [facility] [address] [place] [address] Office 2. Mary Cantor MD Specialty: Neurology Office Address [address] [facility] [place] [address] Office Primary Care Provider Care Physician No Primary Time spent on discharge: > 30 minutes Pending Labs Laboratory Tests Test 05/07/18 17:12 05/07/18 20:30 05/08/18 07:50 05/08/18 07:53 Bedside 80 121 64 Glucose mg/dL (70-220) mg/dL (70-220) mg/dL (70-220) White Blood 4.8 Count 10^3/ul (4.8-1 0.8) Red Blood 2.93 Count 10^6/ul (4.70- 6.10) Hemoglobin 8.8 g/dl (14.0-18. 0) Hematocrit 26.3 % (42.0-52.0) Mean 89.8 Corpuscular fl (82.0-101.0 Volume ) Mean 30.0 Corpuscular pg (29.0-33.0) Hemoglobin Mean 33.5 Corpuscular g/dl (32.0-37. Hemoglobin Conc 0) ent Red Cell 13.7 Distribution % (11.5-14.5) Width Platelet Count 149 10^3/UL (140-4 15) Mean Platelet 9.0 Volume fl (7.4-10.4) Immature 0.200 Granulocytes % % (0.001-0.429 ) Neutrophils % 70.8 % (39.0-77.0) Lymphocytes % 18.2 % (15.0-51.0) Monocytes % 9.4 % (0.0-11.0) Eosinophils % 1.0 % (0.0-7.0) Basophils % 0.4 % (0.0-2.0) Nucleated Red 0.0 Blood Cells % /100WBC (0.0-0 .0) Immature 0.010 Granulocytes # 10^3/ul (0.0-0 .031) Neutrophils # 3.4 10^3/ul (1.6-7 .5) Lymphocytes # 0.9 10^3/ul (0.8-2 .9) Monocytes # 0.5 10^3/ul (0.3-0 .9) Eosinophils # 0.1 10^3/ul (0.0-0 .5) Basophils # 0.0 10^3/ul (0.0-0 .1) Nucleated Red 0.0 Blood Cells # 10^3/ul (0.0-0 .0) Sodium Level 137 mmol/L (135-14 4) Potassium 5.2 Level mmol/L (3.5-5. 1) Chloride Level 91 mmol/L (97-110 ) Carbon Dioxide 27 Level mmol/L (21-31) Anion Gap 19 (5-13) Blood Urea 70 Nitrogen mg/dl (7-20) Creatinine 10.20 mg/dl (0.61-1. 24) Est Glomerular 5 mL/min (>60) Filtrat Rate mL/min Glucose Level 57 mg/dl (70-220) Calcium Level 9.0 mg/dl (8.4-10. 2) Phosphorus 6.2 Level mg/dl (2.5-4.9 ) Magnesium 2.7 Level mg/dl (1.7-2.5 ) Hepatitis B NEGATIVE (NEGA Surface TIVE) Antigen Test 05/08/18 08:08 05/08/18 12:27 Bedside 77 151 Glucose mg/dL (70-220) mg/dL (70-220) ROLAND ZIMMERMAN NP May 08, 2018 15:12
--- NOTE | 2018-05-08 23:54 | CONS ---
NADIA PILLAI MD May 08, 2018 23:54
== END 2018-05-08 16:30 | disposition home or self-care (01) ==
LOC: E/R 08:26 → TEL 09:51
PROVIDERS: ADMIT Internal Medicine; ATTEND Internal Medicine
DX: G93.40 Encephalopathy, unspecified (principal); I65.23 Occlusion and stenosis of bilateral carotid arteries; I65.02 Occlusion and stenosis of left vertebral artery; I70.8 Atherosclerosis of other arteries; I12.0 Hypertensive chronic kidney disease with stage 5 chronic kidney disease or end stage renal disease; E11.22 Type 2 diabetes mellitus with diabetic chronic kidney disease; N18.6 End stage renal disease; Z99.2 Dependence on renal dialysis; Z79.4 Long term (current) use of insulin; E78.00 Pure hypercholesterolemia, unspecified; E78.5 Hyperlipidemia, unspecified; D64.9 Anemia, unspecified; F17.200 Nicotine dependence, unspecified, uncomplicated
CPT/HCPCS: 36415; 70450; 70496; 70498; 70551; 71045; 71275; 80048; 80053; 80061; 80307; 82550; 82553; 82962; 83036; 83735; 84100; 84484; 85025; 85610; 85730; 87081; 87340; 90935; 92610; 93005; 93306; 97161; 99291; G0378; J1644; J1815; Q9967; J0360